=== PATIENT | male | born 1980 | race Two or more races ===

== ENCOUNTER 2022-05-17 17:50 | Emergency (ER) | payer OTHER, SELFPAY ==
--- NOTE | ~2022-05-17 | CT_ITS ---
EXAMINATION: CT SOFT TISSUE NECK WITH CONTRAST CLINICAL INFORMATION: Left greater than right tonsillar swelling. Pain. Abscess. COMPARISON: None available. TECHNIQUE: Multidetector helical imaging was performed in the axial plane following the administration of 60 mL of Omnipaque 350 intravenous contrast. Multiple axial reformats and coronal/sagittal reconstructions were created the technologist workstation for review. This CT examination was performed using dose optimization techniques as appropriate, variously including the following: *Automated exposure control. *Adjustment of mA and/or kV according to patient size (this includes techniques or standardized protocols for targeted exams where dose is matched to indication/reason for exam; i.e. extremities or head). *Use of iterative reconstruction technique. DLP: 1047 mGy-cm FINDINGS: Prominent heterogeneous enlargement of the palatine tonsils abutting in the midline. No demonstrated discrete drainable tonsillar or peritonsillar fluid collection. There is moderate fat stranding within the left greater than right parapharyngeal adipose tissue and to a lesser extent submandibular spaces. No significant cutaneous thickening or subcutaneous inflammation. No discrete fluid collection within the deep tissues of the neck. The premaxillary, retromaxillary, pterygopalatine fossa, orbital apical, parapharyngeal, and prelaryngeal adipose tissue is maintained. Normal appearance of the parotid, submandibular, and thyroid glands. Prominent bilateral level IIa lymph nodes with maintained normal fatty romy, measuring up to 2.5 cm on the right and 2.2 cm on the left. Bilateral level III lymph nodes measure up to 1.4 cm. Otherwise, scattered subcentimeter lymph nodes bilaterally, none of which are pathologically enlarged or abnormally enhancing. No demonstrated focal lesion or abnormal enhancement within the intrinsic tissues of the tongue or floor of mouth. Normal mucosal contours of the remainder of the pharynx and larynx without abnormal enhancement. Normal appearance of the hyoid bone, thyroid cartilage, or cartilaginous trachea. The airways remains widely patent. No radiopaque foreign bodies. The atlantooccipital and atlantoaxial articulations remain well aligned. Straightening of the normal cervical lordosis. There is anatomic alignment of the vertebral bodies and posterior elements. No evidence of acute fracture or subluxation of the cervical spine. The vertebral body heights are maintained. Moderate degenerative disc disease at C4-C5 and C5-C6. The intervertebral disc spaces are maintained. No evidence of epidural collection. There is no prevertebral soft tissue swelling. Normal opacification of the cervical arterial and venous structures. The visualized portion of the skull base is without significant abnormalities. Moderate mucosal thickening of the paranasal sinuses. Small bilateral mastoid effusions. Odontogenic enamel erosion of the maxillary left 3rd molar. No demonstrated significant periapical odontogenic disease. CT Upper Chest: The visualized lung apices and upper mediastinum are within normal limits. CT/CT soft tissue neck w IV con IMPRESSION: 1. Prominent heterogeneous enlargement of the palatine tonsils abutting in the midline. No demonstrated discrete drainable fluid collection. 2. Prominent bilateral upper cervical chain lymphadenopathy, likely reactive in nature. 3. Moderate sinonasal mucosal disease. Small bilateral mastoid effusions.
--- NOTE | 2022-05-17 18:05 | ED.URI ---
HPI - URI/Sore Throat General Chief Complaint: Upper Respiratory Symptoms <Mckayla Ambrocio CNP - Last Filed: 05/17/22 18:45> Stated Complaint: Sore throat, chills <Mckayla Ambrocio CNP - Last Filed: 05/17/22 18:45> Time Seen by Provider: 05/17/22 20:00 <Mckayla Ambrocio CNP - Last Filed: 05/17/22 18:45> Source: patient <DEVIN Sanchez - Last Filed: 05/17/22 23:07> Mode of arrival: ambulatory <DEVIN Sanchez - Last Filed: 05/17/22 23:07> Limitations: no limitations <DEVIN Sanchez - Last Filed: 05/17/22 23:07> History of Present Illness HPI Narrative: 42-year-old male with a history of sleep apnea and diabetes presents with 3 days of sore throat and upper respiratory symptoms. Patient states he is having some difficulty breathing, subjection fever, chills, sinus pain, headache these past few days. Patient tells me he has difficulty eating as well he feels pain with swallowing. Patient is able to speak to me in full sentences and he is controlling secretions well.. Patient denies cough, nausea, vomiting, chest pain, changes in bowel habits, difficulties opening mouth, trouble controlling secretions, recent dental work. <DEVIN Sanchez - Last Filed: 05/17/22 23:07> Related Data Home Medications: Previous Rx's Medication Instructions Recorded clindamycin HCl 300 mg capsule 300 mg PO TID 10 days #30 caps 05/17/22 prednisone 20 mg tablet 60 mg PO DAILY 5 days #15 tabs 05/17/22 <Mckayla Ambrocio CNP - Last Filed: 05/17/22 18:45> Allergies/Adverse Reactions: Allergies Allergy/AdvReac Type Severity Reaction Status Date / Time acetaminophen [From Tylenol] Allergy Rash Verified 05/17/22 18:05 Peanut Butter Allergy Itching Verified 05/17/22 18:05 <Mckayla Ambrocio CNP - Last Filed: 05/17/22 18:45> Review of Systems Review of Systems: Constitutional : No Weight loss, + Fever, + Chills, + Fatigue, + Malaise ENT/Mouth : + sore throat, + Rhinorrhea Eyes: No Eye Pain, No Swelling, No Redness Cardiovascular : No Chest Pain, + SOB, No Dyspnea on Exertion, No Orthopnea, No Edema, No Palpitations Respiratory : No Cough, No Sputum, No Wheezing Gastrointestinal : No Nausea, No Vomiting, No Diarrhea, No Constipation, No abdominal Pain, No Hematochezia, No Melena Genitourinary : No Dysuria, No Urinary Frequency, No Hematuria, Musculoskeletal : No joint pain, No Myalgias, No Joint Swelling Skin : No Skin Lesions, No rash Neuro : No Weakness, No Numbness, No Dizziness, No Headache Psych : No Anxiety/Panic, No Depression All other systems reviewed and are negative <DEVIN Sanchez - Last Filed: 05/17/22 23:07> Yes all other systems are reviewed and are negative <DEVIN Sanchez - Last Filed: 05/17/22 23:07> [facility] Past Medical History Attestation statement: The following information was validated with the patient. <DEVIN Sanchez - Last Filed: 05/17/22 23:07> Source: old records reviewed and nursing notes reviewed <DEVIN Sanchez - Last Filed: 05/17/22 23:07> Social History Social History: Social History Advance Directives: No Advance Directives Information Provided: Yes <Mckayla Ambrocio CNP - Last Filed: 05/17/22 18:45> Physical Exam Vital Signs: Vital Signs: Last Vital Signs Temp 100 F 05/17/22 20:20 Pulse 89 05/17/22 20:20 Resp 13 05/17/22 20:20 BP 149/95 H 05/17/22 20:20 Pulse Ox 96 05/17/22 20:20 O2 Del Method 05/17/22 20:20 BMI result Body Mass Index 37.6 <Mckayla Ambrocio CNP - Last Filed: 05/17/22 18:45> Vital Signs: Last Vital Signs Temp 100 F 05/17/22 20:20 Pulse 89 05/17/22 20:20 Resp 13 05/17/22 20:20 BP 149/95 H 05/17/22 20:20 Pulse Ox 96 05/17/22 20:20 O2 Del Method 05/17/22 20:20 BMI result Body Mass Index 37.6 vss <DEVIN Sanchez - Last Filed: 05/17/22 23:07> Appearance: Alert.? Oriented X3.? No acute distress.? Head: Normocephalic, atraumatic, no step-offs or deformities Eyes: Pupils equal, round and reactive to light.? ENT: + there appears to be some edema to bilateral tonsillar pillars & tonsils with overlying exudates bilaterally, uvula midline, no evidence of abscess. Patient is speaking in full sentences in controlling secretions well. Neck: Normal inspection.? Neck supple.? CVS: Normal heart rate and rhythm.? Pulses normal.? Respiratory: No respiratory distress.? Breath sounds normal.? Abdomen: Soft and nontender.? Skin: Skin warm and dry.? Normal skin color.? Normal skin turgor.? Extremities: No lower extremity edema.? No calf ttp. 5/5 strength to bilateral upper and lower extremities Neuro: Oriented X 3.? No motor deficit.? No sensory deficit. CN 2-12 intact <DEVIN Sanchez - Last Filed: 05/17/22 23:07> Course Course Course Narrative: This is an RME: Additional HPI, ROS, PE not included below will be deferred to primary provider. Patient is a 42 year old male who presents to the ED for evaluation of sore throat, chills x 3 days, states voice muffled, reports hx of similar in the past that responded to steroids Bilateral tonsillar hypertrophy, left greater than right, positive exudates, muffled voice Plan: labs, CT soft tissue neck, strep testing, viral testing, Dexamethasone 10mg PO <Mckayla Ambrocio CNP - Last Filed: 05/17/22 18:45> Reevaluation(s) Reevaluation #1: Patient's CBC with leukocytosis 14.6 likely secondary to strep throat. Chemistry with no acute electrolyte abnormalities requiring intervention. Lactic acid negative. Patient's strep test is positive. CT of soft tissue neck was obtained to rule out abscess, CT scan shows prominent heterogeneous enlargement of the palatine tonsils abutting in the midline , no drainable fluid collection. <DEVIN Sanchez - Last Filed: 05/17/22 23:07> Time: 22:50 <DEVIN Sanchez - Last Filed: 05/17/22 23:07> Reevaluation #2: Patient reports symptomatic improvement states he no longer feels short of breath, he is swallowing much better, controlling secretions well speaking in full sentences, saturating 96-97% on room air comfortable appearing. I did discuss his CT scan results with my attending, who agrees that patient can be discharged home with steroids, clindamycin p.o.. Will educate him on diarrhea warning with clindamycin, will send him home with prednisone. Will give him strict return precautions and advised for and return with any new or worsening symptoms. Will give him follow-up with ears Nose and Throat. Educated patient on diagnosis and treatment plan, answered all question, patient verbalizes understanding. At this time patient will be discharged home, advised to return with new or worsening symptoms. Educated on worrisome signs and symptoms and when to return. At this time I feel comfortable discharge home. <DEVIN Sanchez - Last Filed: 05/17/22 23:07> Time: 23:07 <DEVIN Sanchez - Last Filed: 05/17/22 23:07> Medications Administered Discontinued Medications Generic Name Dose Route Start Last Admin Trade Name Freq PRN Reason Stop Dose Admin Dexamethasone Sodium Phosphate 10 mg 05/17/22 18:44 05/17/22 19:52 Dexamethasone Sod Phosphate 10 Mg/Ml Vial PO 05/17/22 18:45 10 mg ONCE ONE Administration Clindamycin Phosphate 600 mg in 50 mls @ 100 mls/hr 05/17/22 20:23 05/17/22 22:49 Cleocin IV 05/17/22 20:52 Infused ONCE ONE Infusion Iohexol 100 ml 05/17/22 21:16 05/17/22 21:16 Iohexol 350 Mg/Ml 100 Ml Infus..Btl IV 05/17/22 21:17 60 ml ONCE ONE Administration <Mckayla Ambrocio CNP - Last Filed: 05/17/22 18:45> Medications Administered Discontinued Medications Generic Name Dose Route Start Last Admin Trade Name Paulino PRN Reason Stop Dose Admin Dexamethasone Sodium Phosphate 10 mg 05/17/22 18:44 05/17/22 19:52 Dexamethasone Sod Phosphate 10 Mg/Ml Vial PO 05/17/22 18:45 10 mg ONCE ONE Administration Clindamycin Phosphate 600 mg in 50 mls @ 100 mls/hr 05/17/22 20:23 05/17/22 22:49 Cleocin IV 05/17/22 20:52 Infused ONCE ONE Infusion Iohexol 100 ml 05/17/22 21:16 05/17/22 21:16 Iohexol 350 Mg/Ml 100 Ml Infus..Btl IV 05/17/22 21:17 60 ml ONCE ONE Administration <DEVIN Sanchez - Last Filed: 05/17/22 23:07> Medical Decision Making Medical Decision Making [facility] Narrative: 42-year-old male presents with 2 days of sore throat and upper respiratory symptoms Physical exam significant for there appears to be some edema to bilateral tonsillar pillars & tonsils with overlying exudates bilaterally, uvula midline, no evidence of abscess. Patient is speaking in full sentences in controlling secretions well. No trismus Likely strep throat versus abscess. Less likely epiglottitis. I also suspect superimposed viral illness <DEVIN Sanchez - Last Filed: 05/17/22 23:07> Differential Diagnosis Differential Diagnoses: The differential diagnosis associated with the presentation includes <DEVIN Sanchez - Last Filed: 05/17/22 23:07> Likely strep throat versus abscess. Less likely epiglottitis. I also suspect superimposed viral illness <DEVIN Sanchez Last Filed: 05/17/22 23:07> Admission/Observation Consideration of admission/observation: Escalation of care including admission/observation considered <DEVIN Sanchez Last Filed: 05/17/22 23:07> Will not likely be admitted <DEVIN Sanchez Last Filed: 05/17/22 23:07> Lab Data [facility] Lab Attestation statement: I reviewed the patient's lab results. <DEVIN Sanchez Last Filed: 05/17/22 23:07> Result Diagrams: 05/17/22 18:25 05/17/22 18:25 <Mckayla Ambrocio, PRISON[employer] CLASSIFICATION INTERVIEWER - Last Filed: 05/17/22 18:45> Labs: Lab Results 05/17/22 05/17/22 05/17/22 Range/Units 18:25 18:25 18:25 WBC 14.6 H (4.8-10.8) X10*3/uL RBC 4.97 (4.60-5.80) X10*6/uL Hgb 15.2 (14.0-18.0) g/dl Hct 45.1 (42.0-52.0) % MCV 90.7 (80.0-98.0) fL MCH 30.6 (27.0-33.0) pg MCHC 33.7 (31.0-36.0) g/dl RDW 12.3 (11.0-16.0) % Plt Count 230 (160-400) X10*3/uL MPV 11.4 (9.4-12.4) fL Immature Gran % (Auto) 0.4 (0.0-0.4) % Neut % (Auto) 71.3 (45-73) % Lymph % (Auto) 19.1 L (20-40) % [place] % (Auto) 7.5 (2-11) % Eos % (Auto) 1.4 (0-4) % Baso % (Auto) 0.3 (0-2) % Lymph # (Auto) 2.8 (1.2-4.9) X10*3/uL [place] # (Auto) 1.1 (0.1-1.2) X10*3/uL Eos # (Auto) 0.2 (0.0-0.4) X10*3/uL Baso # (Auto) 0.0 (0.0-0.2) X10*3/uL Abs Immat Gran (auto) 0.06 H (0.00-0.03) X10*3/uL Absolute Neuts (auto) 10.4 H (2.0-8.3) x10*3/uL Absolute Nucleated RBC 0.000 (0.0-0.012) X10*3/uL Nucleated RBC % (auto) 0.0 (0.0-0.2) /100WBC Sodium 137 (135-145) mmol/L Potassium 4.2 (3.3-5.1) mmol/L Chloride 102 (96-108) mmol/L Carbon Dioxide 25 (22-29) mmol/L Anion Gap 14 (12-20) BUN 14 (9-16) mg/dL Creatinine 0.75 (0.5-1.4) mg/dL Estim Creat Clear Calc 174.3 Estimated GFR > 60 Random Glucose 205 H (60-115) mg/dL Lactic Acid (0.5-2.0) mmol/L Calcium 9.1 (8.4-10.2) mg/dL Total Bilirubin 0.8 (0.0-1.0) mg/dL AST 13 (5-37) U/L ALT 18 (0-40) U/L Alkaline Phosphatase 89 (39-117) U/L Total Protein 7.1 (6.5-8.0) g/dL Albumin 4.2 (3.5-5.0) g/dL COVID-19 (DORIAN) (Negative) COVID-19 Clin Com Influenza Type A (LAURIE) Negative (Negative) Influenza Type B (LAURIE) Negative (Negative) Influenza A & B Note See Note S. pyogenes GrpA LAURIE (Negative) 05/17/22 05/17/22 05/17/22 Range/Units 18:25 18:25 20:50 WBC (4.8-10.8) X10*3/uL RBC (4.60-5.80) X10*6/uL Hgb (14.0-18.0) g/dl Hct (42.0-52.0) % MCV (80.0-98.0) fL MCH (27.0-33.0) pg MCHC (31.0-36.0) g/dl RDW (11.0-16.0) % Plt Count (160-400) X10*3/uL MPV (9.4-12.4) fL Immature Gran % (Auto) (0.0-0.4) % Neut % (Auto) (45-73) % Lymph % (Auto) (20-40) % [place] % (Auto) (2-11) % Eos % (Auto) (0-4) % Baso % (Auto) (0-2) % Lymph # (Auto) (1.2-4.9) X10*3/uL [place] # (Auto) (0.1-1.2) X10*3/uL Eos # (Auto) (0.0-0.4) X10*3/uL Baso # (Auto) (0.0-0.2) X10*3/uL Abs Immat Gran (auto) (0.00-0.03) X10*3/uL Absolute Neuts (auto) (2.0-8.3) x10*3/uL Absolute Nucleated RBC (0.0-0.012) X10*3/uL Nucleated RBC % (auto) (0.0-0.2) /100WBC Sodium (135-145) mmol/L Potassium (3.3-5.1) mmol/L Chloride (96-108) mmol/L Carbon Dioxide (22-29) mmol/L Anion Gap (12-20) BUN (9-16) mg/dL Creatinine (0.5-1.4) mg/dL Estim Creat Clear Calc Estimated GFR Random Glucose (60-115) mg/dL Lactic Acid 1.0 (0.5-2.0) mmol/L Calcium (8.4-10.2) mg/dL Total Bilirubin (0.0-1.0) mg/dL AST (5-37) U/L ALT (0-40) U/L Alkaline Phosphatase (39-117) U/L Total Protein (6.5-8.0) g/dL Albumin (3.5-5.0) g/dL COVID-19 (DORIAN) Negative (Negative) COVID-19 Clin Com See Note Influenza Type A (LAURIE) (Negative) Influenza Type B (LAURIE) (Negative) Influenza A & B Note S. pyogenes GrpA LAURIE Positive A (Negative) <Mckayla Ambrocio, PATRIC - Last Filed: 05/17/22 18:45> Lab Results 05/17/22 05/17/22 05/17/22 Range/Units 18:25 18:25 18:25 WBC 14.6 H (4.8-10.8) X10*3/uL RBC 4.97 (4.60-5.80) X10*6/uL Hgb 15.2 (14.0-18.0) g/dl Hct 45.1 (42.0-52.0) % MCV 90.7 (80.0-98.0) fL MCH 30.6 (27.0-33.0) pg MCHC 33.7 (31.0-36.0) g/dl RDW 12.3 (11.0-16.0) % Plt Count 230 (160-400) X10*3/uL MPV 11.4 (9.4-12.4) fL Immature Gran % (Auto) 0.4 (0.0-0.4) % Neut % (Auto) 71.3 (45-73) % Lymph % (Auto) 19.1 L (20-40) % [place] % (Auto) 7.5 (2-11) % Eos % (Auto) 1.4 (0-4) % Baso % (Auto) 0.3 (0-2) % Lymph # (Auto) 2.8 (1.2-4.9) X10*3/uL [place] # (Auto) 1.1 (0.1-1.2) X10*3/uL Eos # (Auto) 0.2 (0.0-0.4) X10*3/uL Baso # (Auto) 0.0 (0.0-0.2) X10*3/uL Abs Immat Gran (auto) 0.06 H (0.00-0.03) X10*3/uL Absolute Neuts (auto) 10.4 H (2.0-8.3) x10*3/uL Absolute Nucleated RBC 0.000 (0.0-0.012) X10*3/uL Nucleated RBC % (auto) 0.0 (0.0-0.2) /100WBC Sodium 137 (135-145) mmol/L Potassium 4.2 (3.3-5.1) mmol/L Chloride 102 (96-108) mmol/L Carbon Dioxide 25 (22-29) mmol/L Anion Gap 14 (12-20) BUN 14 (9-16) mg/dL Creatinine 0.75 (0.5-1.4) mg/dL Estim Creat Clear Calc 174.3 Estimated GFR > 60 Random Glucose 205 H (60-115) mg/dL Lactic Acid (0.5-2.0) mmol/L Calcium 9.1 (8.4-10.2) mg/dL Total Bilirubin 0.8 (0.0-1.0) mg/dL AST 13 (5-37) U/L ALT 18 (0-40) U/L Alkaline Phosphatase 89 (39-117) U/L Total Protein 7.1 (6.5-8.0) g/dL Albumin 4.2 (3.5-5.0) g/dL COVID-19 (DORIAN) (Negative) COVID-19 Clin Com Influenza Type A (LAURIE) Negative (Negative) Influenza Type B (LAURIE) Negative (Negative) Influenza A & B Note See Note S. pyogenes GrpA LAURIE (Negative) 05/17/22 05/17/22 05/17/22 Range/Units 18:25 18:25 20:50 WBC (4.8-10.8) X10*3/uL RBC (4.60-5.80) X10*6/uL Hgb (14.0-18.0) g/dl Hct (42.0-52.0) % MCV (80.0-98.0) fL MCH (27.0-33.0) pg MCHC (31.0-36.0) g/dl RDW (11.0-16.0) % Plt Count (160-400) X10*3/uL MPV (9.4-12.4) fL Immature Gran % (Auto) (0.0-0.4) % Neut % (Auto) (45-73) % Lymph % (Auto) (20-40) % [place] % (Auto) (2-11) % Eos % (Auto) (0-4) % Baso % (Auto) (0-2) % Lymph # (Auto) (1.2-4.9) X10*3/uL [place] # (Auto) (0.1-1.2) X10*3/uL Eos # (Auto) (0.0-0.4) X10*3/uL Baso # (Auto) (0.0-0.2) X10*3/uL Abs Immat Gran (auto) (0.00-0.03) X10*3/uL Absolute Neuts (auto) (2.0-8.3) x10*3/uL Absolute Nucleated RBC (0.0-0.012) X10*3/uL Nucleated RBC % (auto) (0.0-0.2) /100WBC Sodium (135-145) mmol/L Potassium (3.3-5.1) mmol/L Chloride (96-108) mmol/L Carbon Dioxide (22-29) mmol/L Anion Gap (12-20) BUN (9-16) mg/dL Creatinine (0.5-1.4) mg/dL Estim Creat Clear Calc Estimated GFR Random Glucose (60-115) mg/dL Lactic Acid 1.0 (0.5-2.0) mmol/L Calcium (8.4-10.2) mg/dL Total Bilirubin (0.0-1.0) mg/dL AST (5-37) U/L ALT (0-40) U/L Alkaline Phosphatase (39-117) U/L Total Protein (6.5-8.0) g/dL Albumin (3.5-5.0) g/dL COVID-19 (DORIAN) Negative (Negative) COVID-19 Clin Com See Note Influenza Type A (LAURIE) (Negative) Influenza Type B (LAURIE) (Negative) Influenza A & B Note S. pyogenes GrpA LAURIE Positive A (Negative) <DEVIN Sanchez - Last Filed: 05/17/22 23:07> Independent Interpretation I performed an independent interpretation of an: CT Scan <DEVIN Sanchez - Last Filed: 05/17/22 23:07> Radiology Impression Discussion of test interpretation with radiology: I have reviewed the radiologist's reading. <DEVIN Sanchez - Last Filed: 05/17/22 23:07> External Record Review External record reviewed: Inpatient record, Office record, Outpatient record, Prior outpatient labs, Prior outpatient radiology, Primary care record and Outside ED record <DEVIN Sanchez - Last Filed: 05/17/22 23:07> Core Measures AMI core measures followed: Yes <DEVIN Sanchez - Last Filed: 05/17/22 23:07> Measure exclusions: not indicated <DEVIN Sanchez - Last Filed: 05/17/22 23:07> Critical Care Time Critical Care Time Critical Care Time: No <DEVIN Sanchez - Last Filed: 05/17/22 23:07> Discharge Plan Discharge Clinical Impression: Pharyngitis, Viral infection <Mckayla Ambrocio CNP - Last Filed: 05/17/22 18:45> Patient Disposition: Home, Self-Care <Mckayla Ambrocio CNP - Last Filed: 05/17/22 18:45> Instructions: Pharyngitis (ED) <Mckayla Ambrocio CNP - Last Filed: 05/17/22 18:45> Additional Instructions: Take your medications as prescribed. If you were prescribed antibiotics today, it is important that you take your medication to their entirety, do not skip any doses, do not finish them early. Follow-up with your primary care provider this week. Return to the emergency department with new or worsening symptoms. Such as fevers, chills, chest pain, shortness of breath, nausea, vomiting, dizziness, headache, vision changes, lethargy In case of emergency call 911 CT/CT soft tissue neck w IV con IMPRESSION: 1.? Prominent heterogeneous enlargement of the palatine tonsils abutting in the midline. No demonstrated discrete drainable fluid collection. 2.? Prominent bilateral upper cervical chain lymphadenopathy, likely reactive in nature. 3.? Moderate sinonasal mucosal disease. Small bilateral mastoid effusions. ? <Mckayla Ambrocio CNP - Last Filed: 05/17/22 18:45> Prescriptions: New clindamycin HCl 300 mg capsule 300 mg PO TID 10 Days Qty: 30 0RF prednisone 20 mg tablet 60 mg PO DAILY 5 Days Qty: 15 0RF <Mckayla Ambrocio CNP - Last Filed: 05/17/22 18:45> Referrals: Manuel Cohn [Physician] - 2 days Physician,Julian J [Primary Care Provider] - 2 days <Mckayla Ambrocio CNP - Last Filed: 05/17/22 18:45> Stand Alone Forms: Work/School Release <Mckayla Ambrocio CNP - Last Filed: 05/17/22 18:45>
[2022-05-17 18:06] VITALS: BP 143/78; PULSE 95; RESP 18; TEMP 37.1; BMI 37.6
[2022-05-17 18:33] LABS: MANUAL DIFF FLAG NO
[2022-05-17 18:39] LABS: Basophils Percent Auto 0.3 % (0-2); Eosinophils Absolute Auto 0.2 X10*3/uL (0.0-0.4); Eosinophils Percent Auto 1.4 % (0-4); Hematocrit 45.1 % (42.0-52.0); Hemoglobin 15.2 g/dl (14.0-18.0); Imm Gran Abs Auto 0.06 X10*3/uL (0.00-0.03); Imm Gran Pct Auto 0.4 % (0.0-0.4); Lymphocytes Absolute Auto 2.8 X10*3/uL (1.2-4.9); Lymphocytes Percent Auto 19.1 % (20-40); Mean Corpuscular HGB Conc 33.7 g/dl (31.0-36.0); Mean Corpuscular Hemoglobin 30.6 pg (27.0-33.0); Mean Corpuscular Volume 90.7 fL (80.0-98.0); Mean Platelet Volume 11.4 fL (9.4-12.4); Monocytes Absolute Auto 1.1 X10*3/uL (0.1-1.2); Monocytes Percent Auto 7.5 % (2-11); Neutrophils Absolute Auto 10.4 x10*3/uL (2.0-8.3); Neutrophils Percent Auto 71.3 % (45-73); Platelet Count 230 X10*3/uL (160-400); Red Blood Count 4.97 X10*6/uL (4.60-5.80); Red Cell Distribution Width 12.3 % (11.0-16.0); White Blood Count 14.6 X10*3/uL (4.8-10.8)
[2022-05-17 18:50] LABS: Alanine Aminotransferase 18 U/L (0-40); Albumin Level 4.2 g/dL (3.5-5.0); Alkaline Phosphatase 89 U/L (39-117); Anion Gap 14 (12-20); Aspartate Amino Transferase 13 U/L (5-37); Bilirubin Total 0.8 mg/dL (0.0-1.0); Blood Urea Nitrogen 14 mg/dL (9-16); Calcium 9.1 mg/dL (8.4-10.2); Carbon Dioxide 25 mmol/L (22-29); Chloride 102 mmol/L (96-108); Creatinine Clr Calc Pharmacy 174.3; Estimated Glomerular Filt Rate > 60; Glucose Random 205 mg/dL (60-115); Potassium 4.2 mmol/L (3.3-5.1); Sodium 137 mmol/L (135-145); Total Protein 7.1 g/dL (6.5-8.0)
[2022-05-17 18:53] LABS: IDNOW Serial# 6674DD1D; Strep A Nucleic Acid Positive (Negative)
[2022-05-17 19:05] LABS: COVID-19 Test Negative (Negative); IDNOW Serial# 16C4AD1C; IDNOW Serial# BCCEAD1C; Influenza A Negative (Negative); Influenza B2 Negative (Negative)
[2022-05-17] MEDS: dexAMETHasone sod phosphate 10 MG/ML VIAL PO (19:52)
[2022-05-17 20:20] VITALS: BP 149/95; PULSE 89; RESP 13; TEMP 37.7; O2SAT 96
[2022-05-17] MEDS: iohexoL 350 MG/ML 100 ML INFUS..BTL IV (21:16)
[2022-05-17] MEDS: Clindamycin Phosphate/D5W 600 MG/50 ML PIGGYBACK 100 MG IV (21:26)
[2022-05-17 23:42] VITALS: BP 134/80; PULSE 82; RESP 16; TEMP 36.8; O2SAT 95
--- NOTE | 2022-05-17 23:43 | MHC.EDTECH ---
patient vitals sign taken ,patient waiting for discharge paper work .
== END 2022-05-18 00:36 | disposition home or self-care (01) ==
PROVIDERS: Nurse Practitioner Family; Physician Assistant; Emergency Provider Internal Medicine
DX: B34.9 Viral infection, unspecified (principal); J02.0 Streptococcal pharyngitis; Z20.822 Contact with and (suspected) exposure to COVID-19
CPT/HCPCS: 36415; 70491; 80053; 83605; 85025; 87040; 87502; 87635; 87651; 96365; 99284; J1100; Q9967

== ENCOUNTER 2022-05-31 09:38 | Emergency (ER) | payer OTHER, SELFPAY ==
[2022-05-31 10:09] VITALS: BP 141/94; PULSE 77; RESP 18; TEMP 36.5; O2SAT 97; BMI 34.8
[2022-05-31 10:22] LABS: MANUAL DIFF FLAG NO
[2022-05-31 10:24] LABS: Basophils Percent Auto 0.3 % (0-2); Eosinophils Absolute Auto 0.2 X10*3/uL (0.0-0.4); Hematocrit 44.8 % (42.0-52.0); Hemoglobin 15.1 g/dl (14.0-18.0); Imm Gran Abs Auto 0.04 X10*3/uL (0.00-0.03); Imm Gran Pct Auto 0.4 % (0.0-0.4); Lymphocytes Absolute Auto 3.1 X10*3/uL (1.2-4.9); Lymphocytes Percent Auto 33.3 % (20-40); Mean Corpuscular HGB Conc 33.7 g/dl (31.0-36.0); Mean Corpuscular Hemoglobin 30.3 pg (27.0-33.0); Mean Platelet Volume 11.4 fL (9.4-12.4); Monocytes Absolute Auto 0.6 X10*3/uL (0.1-1.2); Monocytes Percent Auto 6.7 % (2-11); Neutrophils Absolute Auto 5.3 x10*3/uL (2.0-8.3); Neutrophils Percent Auto 57.3 % (45-73); Platelet Count 227 X10*3/uL (160-400); Red Blood Count 4.98 X10*6/uL (4.60-5.80); Red Cell Distribution Width 12.1 % (11.0-16.0); White Blood Count 9.3 X10*3/uL (4.8-10.8)
[2022-05-31 10:47] LABS: Anion Gap 10 (12-20); Blood Urea Nitrogen 11 mg/dL (9-16); Calcium 8.8 mg/dL (8.4-10.2); Carbon Dioxide 28 mmol/L (22-29); Chloride 101 mmol/L (96-108); Creatinine Clr Calc Pharmacy 177.1; Estimated Glomerular Filt Rate > 60; Glucose Random 332 mg/dL (60-115); Potassium 4.3 mmol/L (3.3-5.1); Sodium 135 mmol/L (135-145)
--- NOTE | 2022-05-31 12:04 | ED.GENADULT ---
HPI - General Adult General Chief complaint: General Medical Stated complaint: Large hemorrhoids Time Seen by Provider: 05/31/22 11:35 History of Present Illness HPI narrative: Patient is 42-year-old male presents today with having pain in the rectal area for the last 2 days. Pain on defecation. No fever no chills no chest pain or shortness breath no nausea no vomiting. No systemic complaints. Patient has a history of diabetes. Related Data Previous Rx's Medication Instructions Recorded clindamycin HCl 300 mg capsule 300 mg PO TID 10 days #30 caps 05/17/22 prednisone 20 mg tablet 60 mg PO DAILY 5 days #15 tabs 05/17/22 docusate sodium 100 mg capsule 100 mg PO BID #30 caps 05/31/22 (Colace) oxycodone 5 mg tablet 5 mg PO Q8H PRN pain #7 tabs 05/31/22 Allergies Allergy/AdvReac Type Severity Reaction Status Date / Time acetaminophen [From Tylenol] Allergy Rash Verified 05/17/22 18:05 Peanut Butter Allergy Itching Verified 05/17/22 18:05 Review of Systems Review of Systems: Positive rectal pain Yes all other systems are reviewed and are negative [facility] Past Medical History Attestation statement: The following information was validated with the patient. Social History Social History Smoked in Last 30 Days: Yes Advance Directives: No Advance Directives Information Provided: Yes Physical Exam ED Vital Signs: Vital Signs - 24 hr 05/31/22 10:09 05/31/22 12:39 Temperature 97.7 F 97.9 F Pulse Rate 77 62 Respiratory Rate 18 14 Blood Pressure 141/94 H 128/90 H Pulse Oximetry 97 98 Oxygen Delivery Method Room Air BMI result Body Mass Index 34.8 Appearance: Alert. Oriented X3. No acute distress. Eyes: Pupils equal, round and reactive to light. ENT: Pharynx normal. Neck: Normal inspection. Neck supple. No lymph nodes noted. No crepitus CVS: Normal heart rate and rhythm. Pulses normal. Normal S1 and S2 Respiratory: No respiratory distress. Breath sounds normal. No Wheezing. No rales Abdomen: Soft and nontender. No rigidity. No distention. good BS x4 Skin: Skin warm and dry. Normal skin color. Normal skin turgor. Rectal exam there is a gross thrombosed hemorrhoid noted that is approximately 3 cm x 2 cm in size. Extremities: No lower extremity edema. Neurovascular intact to all extremities. No Lacerations. No Rash Neuro: Oriented X 3. No motor deficit. No sensory deficit. Moving all extermities. No slurred speech Medical Decision Making Medical Decision Making [facility] Narrative: Positive thrombosed hemorrhoid likely the cause of patient's extreme pain on defecation. Patient's hemoglobin is normal. No acute distress. Patient's case discussed with general surgery Dr. Jean. Coming down to evaluate patient. In stable condition. Patient is seen by surgery. The hemorrhoid was cut. Will give Percocet Colace. Follow-up on an outpatient basis with surgery. Sitz bath. In stable condition with discharge home Differential Diagnosis Differential Diagnoses: The differential diagnosis associated with the presentation includes Thrombosed hemorrhoid Lab Data [facility] Lab Attestation statement: I reviewed the patient's lab results. 05/31/22 10:18 05/31/22 10:18 Labs: Lab Results 05/31/22 05/31/22 Range/Units 10:18 10:18 WBC 9.3 (4.8-10.8) X10*3/uL RBC 4.98 (4.60-5.80) X10*6/uL Hgb 15.1 (14.0-18.0) g/dl Hct 44.8 (42.0-52.0) % MCV 90.0 (80.0-98.0) fL MCH 30.3 (27.0-33.0) pg MCHC 33.7 (31.0-36.0) g/dl RDW 12.1 (11.0-16.0) % Plt Count 227 (160-400) X10*3/uL MPV 11.4 (9.4-12.4) fL Immature Gran % (Auto) 0.4 (0.0-0.4) % Neut % (Auto) 57.3 (45-73) % Lymph % (Auto) 33.3 (20-40) % Daggett % (Auto) 6.7 (2-11) % Eos % (Auto) 2.0 (0-4) % Baso % (Auto) 0.3 (0-2) % Lymph # (Auto) 3.1 (1.2-4.9) X10*3/uL Daggett # (Auto) 0.6 (0.1-1.2) X10*3/uL Eos # (Auto) 0.2 (0.0-0.4) X10*3/uL Baso # (Auto) 0.0 (0.0-0.2) X10*3/uL Abs Immat Gran (auto) 0.04 H (0.00-0.03) X10*3/uL Absolute Neuts (auto) 5.3 (2.0-8.3) x10*3/uL Absolute Nucleated RBC 0.000 (0.0-0.012) X10*3/uL Nucleated RBC % (auto) 0.0 (0.0-0.2) /100WBC Sodium 135 (135-145) mmol/L Potassium 4.3 (3.3-5.1) mmol/L Chloride 101 (96-108) mmol/L Carbon Dioxide 28 (22-29) mmol/L Anion Gap 10 L (12-20) BUN 11 (9-16) mg/dL Creatinine 0.71 (0.5-1.4) mg/dL Estim Creat Clear Calc 177.1 Estimated GFR > 60 Random Glucose 332 H (60-115) mg/dL Calcium 8.8 (8.4-10.2) mg/dL Discharge Plan Discharge Clinical Impression: External hemorrhoid, thrombosed Patient Disposition: Home, Self-Care Instructions: Hemorrhoids (ED), Stapled Hemorrhoidopexy (DC) Additional Instructions: Sitz bath, use stool softeners. Close follow-up on an outpatient basis with surgery. Prescriptions: New docusate sodium [Colace] 100 mg capsule 100 mg PO BID Qty: 30 0RF oxycodone 5 mg tablet 5 mg PO Q8H PRN (Reason: pain) Qty: 7 0RF Rx Instructions: Partial Fill upon patient request. No Action clindamycin HCl 300 mg capsule 300 mg PO TID 10 Days Qty: 30 0RF prednisone 20 mg tablet 60 mg PO DAILY 5 Days Qty: 15 0RF Referrals: Lang Jean MD [Physician] - 06/04/22
[2022-05-31 12:39] VITALS: BP 128/90; PULSE 62; RESP 14; TEMP 36.6; O2SAT 98
[2022-05-31 13:15] VITALS: RESP 22
[2022-05-31] MEDS: HYDROmorphone HCl 0.5 MG/0.5 ML SYRINGE IVPUSH (13:15)
--- NOTE | 2022-05-31 13:15 | PM.CNGS ---
History of Present Illness Consult details Consult date: 05/31/22 Narrative: 42M who says he has had pain in the anus for 2-3 days now. He says he feels a large tender lump as well. He says he has a hx of constipation. He denies seeing blood per rectum. He says he is healthy otherwise Review of Systems Constitutional: Constitutional: Denies chills and Denies fever(s) Cardiovascular: Cardiovascular: Denies chest pain, Denies dyspnea and Denies dyspnea on exertion Respiratory: Respiratory: Denies cough, Denies dyspnea and Denies dyspnea on exertion Gastrointestinal: Gastrointestinal: Denies hematochezia and Denies change in bowel habits Genitourinary: Genitourinary: Denies hematuria and Denies difficulty urinating Musculoskeletal: Musculoskeletal: Denies back pain and Denies limited range of motion Neurologic: Denies focal weakness and Denies convulsions Psychiatric: Psychiatric: Denies depression and Denies mood swings [facility] Past Medical History Medical History (Updated 06/04/22 @ 16:19 by Lang Jean MD) Thrombosed external hemorrhoid Surgical History Surgical History History of tonsillectomy Social History Social History Patient Tobacco Use Status: Never used Tobacco Meds Allergies Allergy/AdvReac Type Severity Reaction Status Date / Time acetaminophen [From Tylenol] Allergy Rash Verified 06/04/22 15:57 Peanut Butter Allergy Itching Verified 06/04/22 15:57 Physical Exam Vital Signs: Vital Signs: Last Vital Signs Temp 97.9 F 05/31/22 12:39 Pulse 62 05/31/22 12:39 Resp 14 05/31/22 12:39 BP 128/90 H 05/31/22 12:39 Pulse Ox 98 05/31/22 12:39 O2 Del Method 05/31/22 12:39 BMI result Body Mass Index 34.8 Const: General: comfortable and no acute distress Orientation/consciousness: patient oriented x3 Neck: Neck: Yes no lymphadenopathy Resp: Auscultation: clear to auscultation bilaterally Cardio: Rhythm: regular rhythm GI: Other: rectal exam - large thrombosed external hemorrhoid, right anal verge, about 3 cm in diameter Palpation (GI): Soft to palpation, nontender and no guarding Neuro: General: patient oriented x3 Results Labs 05/31/22 10:18 05/31/22 10:18 Labs: Abnormal lab results 05/31/22 05/31/22 Range/Units 10:18 10:18 Abs Immat Gran (auto) 0.04 H (0.00-0.03) X10*3/uL Anion Gap 10 L (12-20) Random Glucose 332 H (60-115) mg/dL Short CBC 05/31/22 Range/Units 10:18 WBC 9.3 (4.8-10.8) X10*3/uL Hgb 15.1 (14.0-18.0) g/dl Hct 44.8 (42.0-52.0) % Plt Count 227 (160-400) X10*3/uL BMP 05/31/22 10:18 Sodium 135 Potassium 4.3 Chloride 101 Carbon Dioxide 28 BUN 11 Creatinine 0.71 Calcium 8.8 All other labs normal. Assessment and Plan (1) External hemorrhoid, thrombosed: Status: Inactive He has a large thrombosed eternal hemorrhid as described. He does state that he significant pain and tenderness. I explained to him that it may be best to evacuate the clots, and remove at least part of the hemorrhoid. I explained the technique under local anesthesia at bedside. I reviewed the risks including but not limited to bleeding, infections and pain.He had given verbal consent. Incision and evacuation of the clots along with partial removal of the hemorrhoid was done. He tolerated the procedure well. I have isntructed him on hot sitz abths three times a day. He can have Percocet, Ibuprofen and Colace.I will see him in the office next week. He may benefit from forma excision down the line depending on size of the residual hemorrhoid. Time Spent With Patient Time: Total time managing care of this patient today ____ minutes. Procedures Date of Service Date of Service: 05/31/22 Procedure Note Procedure Note: Procedure: I and D, and partial excision of thrombosed external hemorrhoid The pt was palced in right lateral decub position. The left buttock was taped away from the anus to allow good exposure. The area of the thrombosed hemorrhoid was prepped and draped, Lidocaine 1% was used for local anesthesia. I made a generous incision on the skin overlying the thrombosed hemorrhoid using a blade 11, This was deepend until I visualized clots. I used scissors to excise some skin of the hemorrhoid and to remove clots. I also removed large amounts of clots with a hemostat. He tolerated the procedure well. Estimated blood loss was about 20 cc. There was good hemostasis at the end.
== END 2022-05-31 13:49 | disposition home or self-care (01) ==
PROVIDERS: Emergency Provider Emergency Medicine Emergency Medical Services
DX: K64.5 Perianal venous thrombosis (principal); K64.9 Unspecified hemorrhoids; Z79.899 Other long term (current) drug therapy
CPT/HCPCS: 36415; 80048; 85025; 96374; 99284; J1170

== ENCOUNTER 2022-06-01 17:45 | Emergency (ER) | payer OTHER, SELFPAY ==
[2022-06-01 18:27] VITALS: BP 133/96; PULSE 101; RESP 18; TEMP 36.8; O2SAT 98; BMI 37.6
== END 2022-06-01 20:59 | disposition left against medical advice (07) ==
PROVIDERS: Emergency Provider Emergency Medicine; PCP Internal Medicine
DX: G89.18 Other acute postprocedural pain (principal); Z53.21 Procedure and treatment not carried out due to patient leaving prior to being seen by health care provider
CPT/HCPCS: 99281

== ENCOUNTER → 2022-06-04 15:25 | Outpatient (BNVA) | payer OTHER, SELFPAY | PROVIDERS: Visit Provider Surgery | DX: K64.5 Perianal venous thrombosis (principal) | CPT/HCPCS: 99202 ==

== ENCOUNTER 2022-06-12 13:36 | Emergency (ER) | payer OTHER, SELFPAY ==
--- NOTE | ~2022-06-12 | XR_ITS ---
EXAMINATION: XR LUMBOSACRAL SPINE CLINICAL INFORMATION: Low back pain. COMPARISON: None available. TECHNIQUE: Three views of the lumbosacral spine. FINDINGS: There is normal lumbar lordosis and spinal alignment. The vertebral bodies are intact. Mild anterior osteophyte formation is seen at L3-L4 and moderate anterior osteophyte formation is seen off of L5 at L4-L5. The intervertebral disc spaces are unremarkable. There is no acute fracture. The soft tissues are unremarkable. XR/XR lumbar spine 2-3V IMPRESSION: Degenerative osteophyte formation as detailed above without other significant abnormality.
[2022-06-12 14:52] VITALS: BP 145/105; PULSE 97; RESP 18; TEMP 36.6; O2SAT 97; BMI 37.3
[2022-06-12] MEDS: Cyclobenzaprine HCl 10 MG TABLET PO (16:22)
[2022-06-12] MEDS: predniSONE 20 MG TABLET 60 MG PO (16:23)
[2022-06-12] MEDS: NaPROXEN 500 MG TABLET PO (16:23)
--- NOTE | 2022-06-12 17:41 | ED_ITS ---
HPI - Back Pain/Injury General Chief Complaint: Back Pain/Injury Stated Complaint: lower back pain Time Seen by Provider: 06/12/22 15:36 Source: patient Mode of arrival: ambulatory Limitations: no limitations History of Present Illness HPI Narrative: 42-year-old male presenting to the ER with complaints of lower back pain that has been atraumatic over the past 5 days. Reports that he has had back pain in the past for many years although has never had it for this long. He reports that he does not work at this time and he is not doing any heavy lifting. He reports it is at the lower spine. Reports it is worse when he wakes up in the mornings and with movement bending over any type of lifting that is not heavy. He denies any fevers, chills, dizziness, headaches, neck pain/stiffness, trouble swallowing breathing, chest pain or shortness of breath, dyspnea on exertion, orthopnea, palpitations, paresthesias, abdominal pain, flank pain, dysuria, hematuria, abnormal penile discharge, black or bloody stools, urinary bowel incontinence or paresthesias, saddle anesthesia, IV drug use, recent falls or trauma or any other symptoms complaints or concerns at this time. MD elicited complaint: back pain Pertinent past history: prior back pain Onset (ago): day(s) (5) Timing: constant Severity: moderate Similar Symptoms Previously: Yes Quality: burning and aching Location: lumbar spine Radiation: none Exacerbating factors: movement, walking and lifting Relieving factors: none Context: unknown Associated symptoms: denies other symptoms Treatments prior to arrival: other (Reports he has tried multiple [id number] medication no symptomatic relief) Work related injury: No Related Data Previous Rx's Medication Instructions Recorded clindamycin HCl 300 mg capsule 300 mg PO TID 10 days #30 caps 05/17/22 docusate sodium 100 mg capsule 100 mg PO BID #30 caps 05/31/22 (Colace) cyclobenzaprine 10 mg tablet 10 mg PO Q8H #14 tabs 06/12/22 naproxen 500 mg tablet 500 mg PO BID PRN pain #14 tabs 06/12/22 prednisone 20 mg tablet 40 mg PO DAILY inflammation 5 days 06/12/22 #10 tabs Allergies Allergy/AdvReac Type Severity Reaction Status Date / Time acetaminophen [From Tylenol] Allergy Rash Verified 06/12/22 14:51 Peanut Butter Allergy Itching Verified 06/12/22 14:51 Review of Systems Review of Systems: Constitutional : No trauma, No Weight loss, No Fever, No Chills, ENT/Mouth : No Hearing loss, No Ear Pain, No Nasal Congestion, No Sinus Pain, No Hoarseness, No sore throat, No Rhinorrhea, No Swallowing Difficulty Cardiovascular : No Chest Pain, No SOB Respiratory : No Cough, No Dyspnea Gastrointestinal : No Nausea, No Vomiting, No Diarrhea, No abdominal Pain, No Hematochezia, No Melena Genitourinary : No Dysuria, No Urinary Frequency, No Hematuria, No Urinary or Bowel Incontinence/retention Musculoskeletal : + Back pain, No neck pain, No joint stiffness, No joint swelling Skin : No Skin Lesions, No rash or signs of infection Neuro : No Weakness, No radiation, No Numbness, No Paresthesias, No headache, no loss of bowel or bladder incontinence, no saddle anesthesia Denies history of IV drug usage. Yes all other systems are reviewed and are negative PMFSH Past Medical History Attestation statement: The following information was validated with the patient. Source: old records reviewed and nursing notes reviewed Medical History Thrombosed external hemorrhoid Surgical History History of tonsillectomy Social History Social History Patient Tobacco Use Status: Never used Tobacco Advance Directives: No Advance Directives Information Provided: No Physical Exam Vital Signs: Vital Signs: Last Vital Signs Temp 98 F 06/12/22 14:52 Pulse 97 06/12/22 14:52 Resp 18 06/12/22 14:52 BP 145/105 H 06/12/22 14:52 Pulse Ox 97 06/12/22 14:52 O2 Del Method 06/12/22 14:52 BMI result Body Mass Index 37.3 vital signs have been reviewed as normal and appeared to be correct. Blood pressure normal. Heart rate normal. Respiration rate normal. Temperature normal. Oxygen saturation normal. Appearance: Alert. Oriented X3. No acute distress. Head: Normal external exam. Normocephalic. Atraumatic. No Andrea signs noted. No raccoon eyes noted Eyes: PERRLA. EOMI. Conjunctiva and sclera normal. Eyelids normal. ENT: EAC normal. TM's Normal. Pharynx normal. Uvula midline. Moist mucous membranes. No trismus noted. No drooling noted. No muffled voice noted. Neck: Normal inspection. Neck supple. FROM. No adenopathy. Thyroid Normal. No meningeal signs. No neck mass noted. CVS: Normal heart rate and rhythm. Heart sound normal. No murmurs noted. Pulses normal throughout. Respiratory: No respiratory distress. Painless inspiration. Breath sounds normal. No wheezes/rales/rhonchi noted. Chest nontender. No accessory muscle usage noted or decreased air movement noted. Abdomen: Soft and nontender. Bowel sounds normal in all 4 quadrants. No distention noted. No organomegaly noted. No visible injury noted. Back: No CVA tenderness. Full range of motion noted. No obvious deformities, or edema. Mild para-spinal muscular tenderness from lumbar region to coccyx. Full ROM in back and lower extremities. 5/5 strength hip extension/flexion, abduction, adduction. Mild Lumbar pain with hip flexion against resistance. Straight leg raise test negative on right; Straight leg raise test negative on left; Reflexes normal ankle and knee bilaterally; EHL motor strength normal bilaterally. No rashes/lesion/induration/fluctuance or signs infection noted. Skin: Skin warm and dry. Normal skin color. Normal skin turgor. No rashes/lesions/lacerations noted. Extremities: No lower extremity edema. Extremities exhibit normal range of motion. Extremities nontender. Neuro: Oriented X 3. No motor deficit. No sensory deficit. Reflexes normal. Patient has a normal steady gait. Course Course Course Narrative: Pt c likely muscular pain, but could be herniated disc. Neuro exam shows no deficits. Not c/w AAA/epidural abscess/dissection.No high risk Hx (Incont, fever, immunosupp, recent surgery/LP, coag, signif trauma, wt loss, puls mass, hx/o Ca, TB, or IVDU) to warrant MRI/CT today. Not c/w Pyelo/UTI/kidney stone/spinal fx. Not cauda equina syndrome. X-ray obtained revealed degenerative changes and osteophytes otherwise no other acute processes. Therefore patient was given naproxen, Flexeril and prednisone reports moderate symptomatic relief. Will DC home with same treatment and instructions return if any new or worsening symptoms and to follow up with primary care provider. Farhad colon understands agrees with this plan. Medications Administered Discontinued Medications Generic Name Dose Route Start Last Admin Trade Name Freq PRN Reason Stop Dose Admin Cyclobenzaprine HCl 10 mg 06/12/22 16:13 06/12/22 16:22 Cyclobenzaprine Hcl 10 Mg Tablet PO 06/12/22 16:14 10 mg ONCE ONE Administration Naproxen 500 mg 06/12/22 16:13 06/12/22 16:23 Naproxen 500 Mg Tablet PO 06/12/22 16:14 500 mg ONCE ONE Administration Prednisone 60 mg 06/12/22 16:13 06/12/22 16:23 Prednisone 20 Mg Tablet PO 06/12/22 16:14 60 mg ONCE ONE Administration Medical Decision Making Independent Interpretation I performed an independent interpretation of an: Plain X-Ray (Lumbar spine x-ray reviewed by myself agreeable radiologist report) Radiology Impression Discussion of test interpretation with radiology: I have reviewed the radiologist's reading. Radiologist Impression: CLINICAL INFORMATION: Low back pain. COMPARISON: None available. TECHNIQUE: Three views of the lumbosacral spine. FINDINGS: There is normal lumbar lordosis and spinal alignment. The vertebral bodies are intact. Mild anterior osteophyte formation is seen at L3-L4 and moderate anterior osteophyte formation is seen off of L5 at L4-L5. The intervertebral disc spaces are unremarkable. There is no acute fracture. The soft tissues are unremarkable. XR/XR lumbar spine 2-3V IMPRESSION: Degenerative osteophyte formation as detailed above without other significant abnormality. 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
== END 2022-06-12 17:53 | disposition home or self-care (01) ==
PROVIDERS: Emergency Provider Emergency Medicine
DX: M51.36 Other intervertebral disc degeneration, lumbar region (principal)
CPT/HCPCS: 72100; 99283

== ENCOUNTER 2022-06-25 19:14 | Emergency (ER) | payer OTHER, SELFPAY ==
[2022-06-25 19:26] VITALS: BP 138/91; PULSE 99; RESP 18; TEMP 36.8; O2SAT 100; BMI 36.2
--- NOTE | 2022-06-25 19:28 | ED.BACK ---
HPI - Back Pain/Injury General Chief Complaint: General Medical <DEVIN Arvizu - Last Filed: 06/25/22 19:35> Stated Complaint: back pain, no injury <DEVIN Arvizu - Last Filed: 06/25/22 19:35> Time Seen by Provider: 06/25/22 22:07 <DEVIN Arvizu - Last Filed: 06/25/22 19:35> Source: patient <Vianca Lynn MD - Last Filed: 06/25/22 23:26> Mode of arrival: ambulatory <Vianca Lynn MD - Last Filed: 06/25/22 23:26> History of Present Illness HPI Narrative: 42-year-old male who comes in with acute on chronic mid lower back pain and denies any IVDA use, denies any fever, chills and denies any bowel or bladder dysfunction and denies any bilateral lower extremity weakness or tingling. Patient states he is also diabetic but is unable to locate his metformin and does not have a primary care provider. <Vianca Lynn MD - Last Filed: 06/25/22 23:26> Related Data Home Medications: Previous Rx's Medication Instructions Recorded clindamycin HCl 300 mg capsule 300 mg PO TID 10 days #30 caps 05/17/22 docusate sodium 100 mg capsule 100 mg PO BID #30 caps 05/31/22 (Colace) cyclobenzaprine 10 mg tablet 10 mg PO Q8H #14 tabs 06/12/22 naproxen 500 mg tablet 500 mg PO BID PRN pain #14 tabs 06/12/22 prednisone 20 mg tablet 40 mg PO DAILY inflammation 5 days 06/12/22 #10 tabs cyclobenzaprine 5 mg tablet 5 mg PO BEDTIME PRN muscle spasm 06/25/22 #4 tabs metformin 1,000 mg tablet 1,000 mg PO BIDWMEAL #60 tabs 06/25/22 <DEVIN Arvizu - Last Filed: 06/25/22 19:35> Allergies/Adverse Reactions: Allergies Allergy/AdvReac Type Severity Reaction Status Date / Time acetaminophen [From Tylenol] Allergy Rash Verified 06/12/22 14:51 Peanut Butter Allergy Itching Verified 06/12/22 14:51 <DEVIN Arvizu - Last Filed: 06/25/22 19:35> Review of Systems Review of Systems: Pertinent positives and negatives as stated in HPI <Vianca Lynn MD - Last Filed: 06/25/22 23:26> PMFSH Past Medical History Source: nursing notes reviewed <Vianca Lynn MD - Last Filed: 06/25/22 23:26> Medical History: Medical History Thrombosed external hemorrhoid <DEVIN Arvizu - Last Filed: 06/25/22 19:35> Surgical History: Surgical History History of tonsillectomy <DEVIN Arvizu - Last Filed: 06/25/22 19:35> Social History Social History: Social History Patient Tobacco Use Status: Never used Tobacco Advance Directives: No Advance Directives Information Provided: No <DEVIN Arvizu - Last Filed: 06/25/22 19:35> Physical Exam Vital Signs: Vital Signs: Last Vital Signs Temp 97.0 F 06/25/22 22:35 Pulse 88 06/25/22 22:35 Resp 18 06/25/22 22:35 BP 133/84 06/25/22 22:35 Pulse Ox 96 06/25/22 22:35 O2 Del Method Room Air 06/25/22 22:35 BMI result Body Mass Index 36.2 <DEVIN Arvizu - Last Filed: 06/25/22 19:35> Vital Signs: Last Vital Signs Temp 97.0 F 06/25/22 22:35 Pulse 88 06/25/22 22:35 Resp 18 06/25/22 22:35 BP 133/84 06/25/22 22:35 Pulse Ox 96 06/25/22 22:35 O2 Del Method Room Air 06/25/22 22:35 BMI result Body Mass Index 36.2 VITAL SIGNS: Reviewed. GENERAL: Well developed, well nourished, in no acute distress. HEAD: Normocephalic/atraumatic EYES: PERRLA, EOMI LUNGS: Normal breath sounds. No adventitious sounds or accessory muscle use. SpO2<96> CARDIOVASCULAR: Regular rate and rhythm without noted murmurs ABDOMEN: Soft, non-tender, non-distended with bowel sounds. : [Rehabilitation Construction Specialist- Lauren Hurt] There is obvious bowel entire this noted to the glans penis and surrounding foreskin no involvement of the scrotum BACK: No midline vertebral spine tenderness or step-offs noted MUSCULOSKELETAL: No tenderness, deformities, or effusions noted on gross inspection. EXTREMITIES: No cyanosis, clubbing or edema. SKIN: Inspection of the skin reveals no rashes NEUROLOGIC: Alert and oriented x 4. Strength and sensation to light touch were grossly intact x 4, DTRs intact. <Vianca Lynn MD - Last Filed: 06/25/22 23:26> Course Course Course Narrative: RME - 42 yo male presenting with acute on chronic nontraumatic low back pain, right worse than left. Here for the same on 06/12 and had xrays down showing degenerative osteophyte formation. No recent trauma. No red flag symptoms of LBP. No PCP to follow up with. Reports 10/10 pain in triage. Patient later reported to nursing he is diabetic and off of his metformin. He has had trouble with my foreskin, difficulty retracting. Plan: treat pain and reassess, exam in treatment room <DEVIN Arvizu - Last Filed: 06/25/22 19:35> Medical Decision Making Medical Decision Making MDM Narrative: 42-year-old male who presents with acute on chronic back pain no red flag symptoms such as fever, chills, bowel or bladder dysfunction and no lower extremity weakness. Will provide combination analgesics to include lidocaine patch and discharge with a short course muscle relaxants to his pharmacy. On evaluation of his penis with appeals specialist at bedside I confirm that he in fact he does have balantitis and currently has medication for the treatment. Will provide patient with prescription for metformin. <Vianca Lynn MD - Last Filed: 06/25/22 23:26> Differential Diagnosis Please see the discussion above <Vianca Lynn MD - Last Filed: 06/25/22 23:26> Lab Data Please see discussion above <Vianca Lynn MD - Last Filed: 06/25/22 23:26> Labs: Lab Results 06/25/22 Range/Units 22:58 Urine Color Yellow Urine Appearance Cloudy Urine pH 6.0 (5.0-9.0) Ur Specific [place] >= 1.030 H (1.005-1.025) Urine Protein 100 (2+) H (Neg-Trace) mg/dL Urine Glucose (UA) >=1000 H (Negative) mg/dL Urine Ketones Trace (Negative) mg/dL Urine Blood Negative (Negative) Urine Nitrite Negative (Negative) Ur Leukocyte Esterase Negative (Negative) Urine RBC 0-2 (0-2) /HPF Urine WBC 0-5 (0-5) /HPF Ur Squamous Epith Cells 0-2 (0-2) /HPF Urine Bacteria None Seen (None Seen) Hyaline Casts 0-2 (0-2) /LPF <DEVIN Arvizu - Last Filed: 06/25/22 19:35> Lab Results 06/25/22 Range/Units 22:58 Urine Color Yellow Urine Appearance Cloudy Urine pH 6.0 (5.0-9.0) Ur Specific [place] >= 1.030 H (1.005-1.025) Urine Protein 100 (2+) H (Neg-Trace) mg/dL Urine Glucose (UA) >=1000 H (Negative) mg/dL Urine Ketones Trace (Negative) mg/dL Urine Blood Negative (Negative) Urine Nitrite Negative (Negative) Ur Leukocyte Esterase Negative (Negative) Urine RBC 0-2 (0-2) /HPF Urine WBC 0-5 (0-5) /HPF Ur Squamous Epith Cells 0-2 (0-2) /HPF Urine Bacteria None Seen (None Seen) Hyaline Casts 0-2 (0-2) /LPF <Vianca Lynn MD - Last Filed: 06/25/22 23:26> External Record Review External record reviewed: Outpatient record, Prior outpatient labs and Prior outpatient radiology <Vianca Lynn MD - Last Filed: 06/25/22 23:26> Chronic Conditions Patient?s care impacted by: Diabetes <Vianca Lynn MD - Last Filed: 06/25/22 23:26> Discharge Plan Discharge Clinical Impression: Balanitis, Acute exacerbation of chronic low back pain, Diabetes <DEVIN Arvizu - Last Filed: 06/25/22 19:35> Patient Disposition: Home, Self-Care <DEVIN Arvizu - Last Filed: 06/25/22 19:35> Instructions: Balanitis (ED), Lower Back Exercises (ED), Diabetes and Nutrition (ED), Diabetes and Exercise (ED) <DEVIN Arvizu - Last Filed: 06/25/22 19:35> Additional Instructions: 1. You have been treated completely for the bowel in tightest via the oral medication that you received this evening. You no longer need the topical medication. If the wounds do not resolve it is likely you have a sexually transmitted infection. 2. You have been prescribed medication for your underlying diabetes since you lost your prescription. However, you need to touch base with the primary care provider [facility]. 3. Ibuprofen 400 mg, orally with milk or food, every 6 hours as needed for your back pain. Take this in conjunction with a lidocaine patch which is also available [id number] and you should place it on the area of maximal tenderness as directed on the outside packaging. You have also received a prescription for muscle relaxant and should take this as prescribed. Return to the ER for any worsening symptoms. <DEVIN Arvizu - Last Filed: 06/25/22 19:35> Prescriptions: New cyclobenzaprine 5 mg tablet 5 mg PO BEDTIME PRN (Reason: muscle spasm) Qty: 4 0RF metformin 1,000 mg tablet 1,000 mg PO BIDWMEAL Qty: 60 0RF No Action clindamycin HCl 300 mg capsule 300 mg PO TID 10 Days Qty: 30 0RF docusate sodium [Colace] 100 mg capsule 100 mg PO BID Qty: 30 0RF naproxen 500 mg tablet 500 mg PO BID PRN (Reason: pain) Qty: 14 0RF cyclobenzaprine 10 mg tablet 10 mg PO Q8H Qty: 14 0RF prednisone 20 mg tablet 40 mg PO DAILY 5 Days Qty: 10 0RF <DEVIN Arvizu - Last Filed: 06/25/22 19:35>
[2022-06-25 22:00] VITALS: RESP 20
[2022-06-25 22:35] VITALS: BP 133/84; PULSE 88; RESP 18; TEMP 36.1; O2SAT 96
[2022-06-25 23:08] LABS: Appearance Urine Cloudy; Color Urine Yellow; Glucose Urine UA >=1000 mg/dL (Negative); Leukocyte Esterase Urine Negative (Negative); Nitrite Urine Negative (Negative); Specific Gravity - Urine >= 1.030 (1.005-1.025); UMIC TRIGGER UACC YES; Urine Blood Negative (Negative); Urine Ketones Trace mg/dL (Negative); Urine Protein 100 (2+) mg/dL (Neg-Trace)
[2022-06-25 23:10] LABS: Bacteria Urine None Seen (None Seen); Hyaline Casts Urine 0-2 /LPF (0-2); RBC Urine 0-2 /HPF (0-2); Squamous Epithelial Cell Urine 0-2 /HPF (0-2); WBC Urine 0-5 /HPF (0-5)
[2022-06-25] MEDS: Lidocaine 4 % Patch ADH..PATCH 1 PATCH TRANSDERMA (23:16)
[2022-06-25] MEDS: metFORMIN HCl 1,000 MG TABLET 1000 MG PO (23:17)
[2022-06-25] MEDS: Ibuprofen 400 MG TABLET PO (23:17)
[2022-06-25 23:26] LABS: Glucose, Whole Blood 248 mg/dL (60-115)
[2022-06-25] MEDS: metroNIDAZOLE 500 MG TABLET 2000 MG PO (23:33)
[2022-06-26 00:58] LABS: CT PCR NOT DETECTED (Not Detect.); NG PCR NOT DETECTED (Not Detect.)
== END 2022-06-25 23:38 | disposition home or self-care (01) ==
PROVIDERS: Emergency Provider Student in an Organized Health Care Education/Training Program
DX: N48.1 Balanitis (principal); M54.50 Low back pain, unspecified; E11.9 Type 2 diabetes mellitus without complications; Z79.899 Other long term (current) drug therapy
CPT/HCPCS: 0353U; 81001; 82947; 99283; 99284

== ENCOUNTER 2022-07-15 18:20 | Emergency (ER) | payer OTHER, SELFPAY ==
[2022-07-15 18:55] VITALS: BP 147/86; PULSE 82; RESP 18; TEMP 36.4; O2SAT 97; BMI 36.9
--- NOTE | 2022-07-15 19:01 | ED_ITS ---
HPI - General Adult General Chief complaint: Back Pain/Injury Stated complaint: lower back pain Time Seen by Provider: 07/15/22 19:01 Source: patient, RN notes reviewed and old records reviewed Mode of arrival: ambulatory Limitations: no limitations History of Present Illness HPI narrative: 42-year-old male presents for evaluation of lower back pain. This is the patient's 3rd visit in the last month for the same complaint. Denies any new injury His pain is worse with movement, especially standing up and sitting down He states ?I feel like there is something moving in my lower back. ? He occasionally has numbness and tingling No bladder or bowel incontinence The patient had an x-ray on June 14, 2022 He reports when he was treated with prednisone his pains into improved The patient does not have a primary doctor Related Data Previous Rx's Medication Instructions Recorded clindamycin HCl 300 mg capsule 300 mg PO TID 10 days #30 caps 05/17/22 docusate sodium 100 mg capsule 100 mg PO BID #30 caps 05/31/22 (Colace) cyclobenzaprine 10 mg tablet 10 mg PO Q8H #14 tabs 06/12/22 naproxen 500 mg tablet 500 mg PO BID PRN pain #14 tabs 06/12/22 prednisone 20 mg tablet 40 mg PO DAILY inflammation 5 days 06/12/22 #10 tabs cyclobenzaprine 5 mg tablet 5 mg PO BEDTIME PRN muscle spasm 06/25/22 #4 tabs metformin 1,000 mg tablet 1,000 mg PO BIDWMEAL #60 tabs 06/25/22 dexamethasone 4 mg tablet 4 mg PO BID #6 tabs 07/15/22 tramadol 50 mg tablet 50 mg PO TID PRN severe pain 07/15/22 (scale score 7-10) #12 tabs Allergies Allergy/AdvReac Type Severity Reaction Status Date / Time acetaminophen [From Tylenol] Allergy Rash Verified 07/15/22 18:55 Peanut Butter Allergy Itching Verified 07/15/22 18:55 Review of Systems Constitutional: Constitutional: Reports as per HPI, Denies chills, Denies fatigue, Denies fever(s) and Denies headache(s) ENT: Denies headache(s) Cardiovascular: Cardiovascular: Denies chest pain and Denies dyspnea Respiratory: Respiratory: Denies cough and Denies dyspnea Gastrointestinal: Gastrointestinal: Denies abdominal pain, Denies constipation and Denies vomiting Genitourinary: Genitourinary: Denies difficulty urinating and Denies dysuria Musculoskeletal: Musculoskeletal: Reports back pain Neurologic: Denies headache(s) and Denies focal weakness Endocrine: Endocrine: Denies fatigue PMFSH Past Medical History Medical History Thrombosed external hemorrhoid Surgical History History of tonsillectomy Social History Social History Patient Tobacco Use Status: Never used Tobacco Advance Directives: No Advance Directives Information Provided: Yes Physical Exam ED Vital Signs: Vital Signs - 24 hr 07/15/22 18:55 Temperature 97.5 F Pulse Rate 82 Respiratory Rate 18 Blood Pressure 147/86 H Pulse Oximetry 97 Oxygen Delivery Method Room Air BMI result Body Mass Index 36.9 Const General: healthy appearing, comfortable, no acute distress, alert and awake Nutritional Appearance: well nourished Orientation/consciousness: patient oriented x3 HENMT Head: Yes normocephalic and Yes atraumatic Throat: Yes posterior oropharynx normal Eyes Eyelids: Yes eyelids normal Conjunctivae: conjunctivae normal Sclerae: sclerae normal Corneas: corneas normal Pupils: Equal, round and reactive pupils present EOM: EOMs intact bilaterally Neck Neck: Yes full ROM Resp Effort & Inspection: normal respiratory effort, able to speak in complete sentences, no audible wheezes and not labored Auscultation: clear to auscultation bilaterally Cardio Rate: regular rate Rhythm: regular rhythm GI Inspection: No distended Palpation (GI): Soft to palpation, not firm, nontender, no guarding and not rigid Auscultation: normoactive bowel sounds Back/Spine/Pelvis Other: Tenderness across the lumbar region without focal deformity. Skin General skin exam: no rashes or lesions noted and elasticity normal Neuro General: patient oriented x3 Cranial nerves: Yes Equal, round and reactive pupils present and Yes Bilaterally intact EOM present Cognition (Neuro): normal cognition Motor exam (neuro): 5/5 motor strength present throughout Extrem Other: Moving all extremities well without any obvious deformities Medical Decision Making Medical Decision Making MDM Narrative: Patient has acute on chronic back pain without any new injury. No warning signs for cauda equina syndrome. There is no indication for emergent imaging. We will treat with Decadron and tramadol. The patient has allergy to Tylenol. Patient referred to outpatient [facility] for further evaluation and management of his chronic back pain Differential Diagnosis Acute on chronic back pain Radiculopathy Sciatica Muscle spasm Degenerative disc disease Discontinuation Discharge Plan Discharge Clinical Impression: Lumbar radiculopathy Patient Disposition: Home, Self-Care Instructions: Lumbar Radiculopathy (ED) Additional Instructions: Call to schedule follow-up You may benefit from an outpatient MRI Take dexamethasone twice daily for the next 3 days You may continue using ibuprofen or naproxen. Use tramadol for severe or breakthrough pain. This may make you sleepy, did not drink alcohol or drive after taking You may also use warm compresses or [id number] icy Hot/lidocaine patches Prescriptions: New dexamethasone 4 mg tablet 4 mg PO BID Qty: 6 0RF tramadol 50 mg tablet 50 mg PO TID PRN (Reason: severe pain (scale score 7-10)) Qty: 12 0RF No Action clindamycin HCl 300 mg capsule 300 mg PO TID 10 Days Qty: 30 0RF docusate sodium [Colace] 100 mg capsule 100 mg PO BID Qty: 30 0RF naproxen 500 mg tablet 500 mg PO BID PRN (Reason: pain) Qty: 14 0RF cyclobenzaprine 10 mg tablet 10 mg PO Q8H Qty: 14 0RF prednisone 20 mg tablet 40 mg PO DAILY 5 Days Qty: 10 0RF cyclobenzaprine 5 mg tablet 5 mg PO BEDTIME PRN (Reason: muscle spasm) Qty: 4 0RF metformin 1,000 mg tablet 1,000 mg PO BIDWMEAL Qty: 60 0RF Stand Alone Forms: Work/School Release Interventions: ED Discharge Assessment Last Done: 07/15/22 19:15 Discharge Date/Time: 07/15/22 19:16
== END 2022-07-15 19:16 | disposition home or self-care (01) ==
PROVIDERS: Emergency Provider Internal Medicine
DX: M54.16 Radiculopathy, lumbar region (principal); Z79.899 Other long term (current) drug therapy
CPT/HCPCS: 99282

== ENCOUNTER 2022-10-10 14:24 | Emergency (ER) | payer OTHER, SELFPAY ==
--- NOTE | ~2022-10-10 | XR_ITS ---
EXAMINATION: XR ANKLE, RIGHT CLINICAL INFORMATION: Pain after injury COMPARISON: None available. TECHNIQUE: AP, lateral, and mortise views of the right ankle. FINDINGS: The ankle mortise is stable. No significant soft tissue swelling is seen. No joint effusion is present. No fractures are seen. There is enthesopathy present at the Achilles tendon insertion. XR/XR ankle RT min 3V IMPRESSION: No evidence of an acute injury.
[2022-10-10 14:40] VITALS: BP 146/93; PULSE 79; RESP 16; TEMP 36.6; O2SAT 99; BMI 36.3
--- NOTE | 2022-10-10 14:48 | ED.LOWEXIN ---
HPI - Extremity Injury (Lower) General Chief Complaint: Extremity Injury, Lower Stated Complaint: R Ankle Injury Time Seen by Provider: 10/10/22 17:52 Source: patient Mode of arrival: ambulatory Limitations: no limitations History of Present Illness HPI Narrative: Patient is a 42 year old assigned male at with a history of hemorrhoids presenting to the emergency department today with right ankle pain and white discharge from his penis. Patient states that yesterday while bringing in the trash, he stepped wrong and twisted his right ankle. Patient states that he also went to urinate this morning and noticed a white discharge from the head of his penis. Patient states that is sexually active. Patient denies any head strike with the incident, loss of consciousness with the incident, numbness, tingling, dizziness, lightheadedness, abdominal pain, nausea, vomiting, fever, chills, blurry vision, double vision, loss of vision, chest pain, difficulty breathing, shortness of breath, back pain, night sweats, pain with urination, increased urinary frequency, increased urinary urgency, blood in his urine or stool, syncope or a near syncopal episode, bowel incontinence, bladder incontinence, bowel retention, bladder retention, or any other complaints at this time. MD complaint: ankle injury (right) and other (penile discharge) Onset (ago): hour(s) Place: home Severity: mild Severity scale (1-10): 3 Relieving factors: nothing Exacerbating factors: nothing Context: walking Other symptoms: none Related Data Previous Rx's Medication Instructions Recorded clindamycin HCl 300 mg capsule 300 mg PO TID 10 days #30 caps 05/17/22 docusate sodium 100 mg capsule 100 mg PO BID #30 caps 05/31/22 (Colace) cyclobenzaprine 10 mg tablet 10 mg PO Q8H #14 tabs 06/12/22 naproxen 500 mg tablet 500 mg PO BID PRN pain #14 tabs 06/12/22 prednisone 20 mg tablet 40 mg PO DAILY inflammation 5 days 06/12/22 #10 tabs cyclobenzaprine 5 mg tablet 5 mg PO BEDTIME PRN muscle spasm 06/25/22 #4 tabs metformin 1,000 mg tablet 1,000 mg PO BIDWMEAL #60 tabs 06/25/22 dexamethasone 4 mg tablet 4 mg PO BID #6 tabs 07/15/22 tramadol 50 mg tablet 50 mg PO TID PRN severe pain 07/15/22 (scale score 7-10) #12 tabs doxycycline hyclate 100 mg tablet 100 mg PO BID 7 days #14 tabs 10/10/22 fluconazole 150 mg tablet 150 mg PO Q3D 2 doses #2 tabs 10/10/22 (Diflucan) Allergies Allergy/AdvReac Type Severity Reaction Status Date / Time acetaminophen [From Tylenol] Allergy Rash Verified 07/15/22 18:55 Peanut Butter Allergy Itching Verified 07/15/22 18:55 Review of Systems Constitutional: Constitutional: Reports no additional constitutional complaints, Denies chills, Denies fever(s) and Denies night sweats Eyes: Eyes: Reports no additional eye complaints, Denies blurry vision, Denies change in vision, Denies diplopia, Denies eye discharge, Denies loss of vision and Denies eye pain ENT: Denies dizziness Cardiovascular: Cardiovascular: Reports no additional cardiovascular complaints, Denies chest pain, Denies lightheadedness, Denies Loss of Consciousness and Denies dyspnea Respiratory: Respiratory: Reports no additional respiratory complaints and Denies dyspnea Gastrointestinal: Gastrointestinal: Reports no additional gastrointestinal complaints, Denies abdominal pain, Denies melena, Denies hematochezia, Denies change in bowel habits and Denies change in stool character Genitourinary: Genitourinary: Reports no additional male genitourinary complaints, Denies hematuria, Denies oliguria, Denies difficulty urinating, Denies dysuria, Reports penile discharge (white), Denies urinary frequency, Denies urinary hesitancy, Denies urinary incontinence and Denies urinary urgency Musculoskeletal: Musculoskeletal: Reports no additional musculoskeletal complaints, Denies numbness and Denies tingling Comments: right ankle pain Neurologic: Denies dizziness, Denies loss of vision, Denies numbness and Denies tingling Psychiatric: Psychiatric: Reports no additional psychiatric complaints Endocrine: Endocrine: Reports no additional endocrine complaints Hematologic/Lymphatic: Hematologic/Lymphatic: Reports no additional hematologic/lymphatic complaints Allergic/Immunologic: Allergic/Immunologic: Reports no additional allergic/immunologic complaints PMFSH Past Medical History Attestation statement: The following information was validated with the patient. Source: old records reviewed and nursing notes reviewed Medical History Thrombosed external hemorrhoid Surgical History History of tonsillectomy Social History Social History Patient Tobacco Use Status: Never used Tobacco Smoked in Last 30 Days: No Use of substances other than those prescribed or required for medical reasons: No Advance Directives: No Advance Directives Information Provided: Yes Physical Exam Vital Signs: Vital Signs: Last Vital Signs Temp 97.8 F 10/10/22 18:19 Pulse 80 10/10/22 18:19 Resp 16 10/10/22 18:19 BP 135/90 H 10/10/22 18:19 Pulse Ox 97 10/10/22 18:19 O2 Del Method Room Air 10/10/22 18:19 BMI result Body Mass Index 36.3 Const: General: cooperative, no acute distress, alert and awake Nutritional Appearance: well nourished Orientation/consciousness: patient oriented x3 Limitations: no limitations HEENT: Head: Yes normal to inspection and Yes atraumatic Ears: hearing grossly normal bilaterally and external ears normal General nose exam: Normal external nose present, no nasal discharge noted and no epistaxis Face and sinus: Yes normal facial exam, No abrasion and No laceration Mouth: Normal oral and palatal mucosa present, no drooling and no muffled voice Eyes: General: appearance normal, both eyes and all related structures Periorbital: periorbital findings normal Eyelids: Yes eyelids normal Conjunctivae: conjunctivae normal Pupils: Equal, round and reactive pupils present EOM: EOMs intact bilaterally Neck: Neck: Yes normal visual inspection, Yes full ROM and Yes no lymphadenopathy Chest: Chest palpation & inspection: normal inspection of the chest Resp: Effort & Inspection: normal respiratory effort and able to speak in complete sentences GI: Inspection: Yes normal to inspection Neuro: General: patient oriented x3 and moves all extremities Cranial nerves: Yes Equal, round and reactive pupils present Cognition (Neuro): normal cognition Motor exam (neuro): 5/5 motor strength present throughout Sensory Exam: Normal double simultaneous stimulation for sensation Coordination: [id number] test normal Extrem: General: Yes normal to inspection, Yes full ROM and Yes capillary refill normal Psych: Appearance: grossly normal Mental Status: mental status grossly normal Affect: normal affect Attitude: cooperative Thought process: Normal thought process present Thought content: Normal thought content present Insight: Good insight present (Psych) Course Course Course Narrative: RME - 42 yo male presenting for evaluation of right ankle injury 2 hours ago. Twisted it while bringing out the trash. Ambulatory but w/ pain. Also new while penile discharge, no other urinary symptoms. Plan: ankle XR, CT/NG, UA Medications Administered Discontinued Medications Generic Name Dose Route Start Last Admin Trade Name Paulino PRN Reason Stop Dose Admin Ceftriaxone Sodium 500 mg/ 0 mg 10/10/22 17:55 10/10/22 18:12 Lidocaine HCl 1 ml IM 10/10/22 17:56 500 kit ONCE ONE Administration Medical Decision Making Medical Decision Making [facility] Narrative: Patient is a 42 year old assigned male at with a history of hemorrhoids presenting to the emergency department today with right ankle pain and penile discharge. Patient's physical exam was unremarkable. Patient deferred a penile examination and instead showed me a picture of the penile discharge on his mobile phone. The discharge pictured was a creamy white color and thick appearing in consistency. Patient's urine showed no acute process. Patient's gonorrhea and chlamydia tests are pending. Patient's right ankle x-ray showed no acute process. I explained my physical exam findings as well as all test results to the patient. I answered all questions asked by the patient. Patient's clinical presentation is most consistent with a right ankle sprain and penile yeast. However, given the patient is sexually active, will cover the patient for STI as well as yeast. I stressed the importance of the patient taking his medication as prescribed. I stressed the importance of the patient following up with his primary care provider. I stressed the importance of the patient returning to the emergency department immediately if his symptoms were to worsen or if he were to develop any dizziness, shortness of breath, difficulty breathing, chest pain, blurry vision, loss of vision, nausea, vomiting, abdominal pain, fever, chills, back pain, or any other complaints. Patient verbalized agreement and understanding with this treatment plan and discharge. Differential Diagnosis Differential Diagnoses: The differential diagnosis associated with the presentation includes Penile yeast Gonorrhea Chlamydia UTI Right ankle sprain Right ankle pain Right ankle fracture Right ankle injury Lab Data [facility] Lab Attestation statement: I reviewed the patient's lab results. My interpretation of these studies and their corresponding values is that they are grossly normal with the exception of the presently pending gonorrhea and chlamydia tests. Labs: Lab Results 10/10/22 Range/Units 15:37 Urine Color Yellow Urine Appearance Clear Urine pH 6.0 (5.0-9.0) Ur Specific [place] 1.025 (1.005-1.025) Urine Protein 100 (2+) H (Neg-Trace) mg/dL Urine Glucose (UA) Negative (Negative) mg/dL Urine Ketones Negative (Negative) mg/dL Urine Blood Negative (Negative) Urine Nitrite Negative (Negative) Ur Leukocyte Esterase Negative (Negative) Urine RBC 0-2 (0-2) /HPF Urine WBC 0-5 (0-5) /HPF Ur Squamous Epith Cells 0-2 (0-2) /HPF Urine Bacteria None Seen (None Seen) Hyaline Casts 0-2 (0-2) /LPF Independent Interpretation I performed an independent interpretation of an: Plain X-Ray Interpretation: My interpretation is in agreement with the radiologist's impression of this imaging study. EXAMINATION: XR ANKLE, RIGHT CLINICAL INFORMATION: Pain after injury? COMPARISON: None available.? TECHNIQUE: AP, lateral, and mortise views of the right ankle. FINDINGS: The ankle mortise is stable. No significant soft tissue swelling is seen. No joint effusion is present. No fractures are seen. There is enthesopathy present at the Achilles tendon insertion.? XR/XR ankle RT min 3V IMPRESSION: No evidence of an acute injury. Dictated By: Clement Awad MD Signed By: Electronically signed by Clement Awad MD 10/10/22 1547 Radiology Impression Discussion of test interpretation with radiology: I have reviewed the radiologist's reading. Prescription Management I considered prescription management with: Antibiotic (patient prescribed doxycycline for STI prophylaxis) and Other (patient prescribed fluconazole for penile yeast) Discharge Plan Discharge Clinical Impression: Yeast dermatitis of penis, Ankle sprain Patient Disposition: Home, Self-Care Instructions: Ankle Sprain (DC), Skin Yeast Infection (ED) Additional Instructions: Your STI testing is still pending at this time. Given your presentation, we will treat you prophylactically for STI. We will call you if your results are positive. Follow up with your primary care provider. Return to the emergency department immediately if your symptoms worsen or if you develop any dizziness, shortness of breath, difficulty breathing, chest pain, blurry vision, loss of vision, nausea, vomiting, abdominal pain, fever, chills, back pain, or any other complaints. Prescriptions: New fluconazole [Diflucan] 150 mg tablet 150 mg PO Q3D Qty: 2 0RF doxycycline hyclate 100 mg tablet 100 mg PO BID 7 Days Qty: 14 0RF No Action clindamycin HCl 300 mg capsule 300 mg PO TID 10 Days Qty: 30 0RF docusate sodium [Colace] 100 mg capsule 100 mg PO BID Qty: 30 0RF naproxen 500 mg tablet 500 mg PO BID PRN (Reason: pain) Qty: 14 0RF cyclobenzaprine 10 mg tablet 10 mg PO Q8H Qty: 14 0RF prednisone 20 mg tablet 40 mg PO DAILY 5 Days Qty: 10 0RF dexamethasone 4 mg tablet 4 mg PO BID Qty: 6 0RF tramadol 50 mg tablet 50 mg PO TID PRN (Reason: severe pain (scale score 7-10)) Qty: 12 0RF cyclobenzaprine 5 mg tablet 5 mg PO BEDTIME PRN (Reason: muscle spasm) Qty: 4 0RF metformin 1,000 mg tablet 1,000 mg PO BIDWMEAL Qty: 60 0RF Referrals: [facility] [place] [facility] [Provider Group] (Call to establish and follow up with a primary care provider. If you already have a primary care provider, please follow up with them.) [facility] [place] [facility] [Provider Group] (Call to establish and follow up with a primary care provider. If you already have a primary care provider, please follow up with them.) [facility] [place] [facility] [Provider Group] (Call to establish and follow up with a primary care provider. If you already have a primary care provider, please follow up with them.) Stand Alone Forms: Work/School Release Interventions: ED Discharge Assessment Last Done: 10/10/22 18:22 Discharge Date/Time: 10/10/22 18:22 Print Language: Upper Sorbian
[2022-10-10 15:45] LABS: Appearance Urine Clear; Color Urine Yellow; Glucose Urine UA Negative (Negative); Leukocyte Esterase Urine Negative (Negative); Nitrite Urine Negative (Negative); Specific Gravity - Urine 1.025 (1.005-1.025); UMIC TRIGGER UACC YES; Urine Blood Negative (Negative); Urine Ketones Negative (Negative); Urine Protein 100 (2+) mg/dL (Neg-Trace)
[2022-10-10 15:48] LABS: Bacteria Urine None Seen (None Seen); Hyaline Casts Urine 0-2 /LPF (0-2); RBC Urine 0-2 /HPF (0-2); Squamous Epithelial Cell Urine 0-2 /HPF (0-2); WBC Urine 0-5 /HPF (0-5)
[2022-10-10] MEDS: cefTRIAXone sodium 500 MG, Lidocaine HCl 1 % MPF 1 ML IM (18:12)
[2022-10-10 18:19] VITALS: BP 135/90; PULSE 80; RESP 16; TEMP 36.6; O2SAT 97
[2022-10-11 11:58] LABS: CT PCR NOT DETECTED (Not Detect.); NG PCR NOT DETECTED (Not Detect.)
== END 2022-10-10 18:22 | disposition home or self-care (01) ==
PROVIDERS: Physician Assistant; Emergency Provider Emergency Medicine
DX: S93.401A Sprain of unspecified ligament of right ankle, initial encounter (principal); X50.1XXA Overexertion from prolonged static or awkward postures, initial encounter; B37.49 Other urogenital candidiasis; Y93.E9 Activity, other interior property and clothing maintenance; Y92.038 Other place in apartment as the place of occurrence of the external cause; Y99.9 Unspecified external cause status
CPT/HCPCS: 0353U; 73610; 81001; 96372; 99284; J0696

== ENCOUNTER 2023-09-16 20:35 | Emergency (ER) | payer OTHER, SELFPAY ==
[2023-09-16 20:55] VITALS: BP 116/83; PULSE 88; RESP 18; TEMP 36.7; O2SAT 96; BMI 38.7
--- NOTE | 2023-09-16 20:55 | ED.GENADULT ---
HPI - General Adult General Chief complaint: General Medical Stated complaint: dehydrated, diabetic Time Seen by Provider: 09/16/23 22:05 Source: patient Mode of arrival: ambulatory Limitations: no limitations History of Present Illness ED Provider: Dr. Gupta HPI narrative: Patient states that he has not been taking his metformin in weeks, now with increased thirst and urination. In addition he states that his foreskin is swollen, cracked and painful with slight discharge Onset (ago): week(s) Severity: moderate Related Data Previous Rx's ?Medication ?Instructions ?Recorded clindamycin HCl 300 mg capsule 300 mg PO TID 10 days #30 caps 05/17/22 docusate sodium 100 mg capsule 100 mg PO BID #30 caps 05/31/22 (Colace) cyclobenzaprine 10 mg tablet 10 mg PO Q8H #14 tabs 06/12/22 naproxen 500 mg tablet 500 mg PO BID PRN pain #14 tabs 06/12/22 prednisone 20 mg tablet 40 mg (2 x 20 mg) PO DAILY 06/12/22 inflammation 5 days #10 tabs cyclobenzaprine 5 mg tablet 5 mg PO BEDTIME PRN muscle spasm 06/25/22 #4 tabs metformin 1,000 mg tablet 1,000 mg PO BIDWMEAL #60 tabs 06/25/22 dexamethasone 4 mg tablet 4 mg PO BID #6 tabs 07/15/22 tramadol 50 mg tablet 50 mg PO TID PRN severe pain 07/15/22 (scale score 7-10) #12 tabs doxycycline hyclate 100 mg tablet 100 mg PO BID 7 days #14 tabs 10/10/22 fluconazole 150 mg tablet 150 mg PO Q3D 2 doses #2 tabs 10/10/22 (Diflucan) clotrimazole 1 % topical cream 1 appl topical BID 4 weeks #90 09/16/23 (Lotrimin AF (clotrimazole)) grams Allergies Allergy/AdvReac Type Severity Reaction Status Date / Time acetaminophen [From Tylenol] Allergy Rash Verified 09/16/23 20:59 Peanut Butter Allergy Itching Verified 09/16/23 20:59 Review of Systems Review of Systems: Yes all other systems are reviewed and are negative Neurologic: Denies Sensory deficit (Neuro) PMFSH Past Medical History Medical History Thrombosed external hemorrhoid Surgical History History of tonsillectomy Social History Social History Patient Tobacco Use Status: Never used Tobacco Smoked in Last 30 Days: No Use of substances other than those prescribed or required for medical reasons: Yes Substance Use Type: Crack/Cocaine Substance Use Frequency: Occasionally Substance Use Frequency Other:: 2 Last Used Substance: Days (ago) Advance Directives: No Advance Directives Information Provided: No Do you have a plan to hurt others: No Plan Physical Exam ED Vital Signs: Vital Signs - 24 hr 09/16/23 20:55 09/16/23 22:04 09/17/23 00:22 Temperature 98.0 F 98.6 F 98.0 F Pulse Rate 88 72 74 Respiratory Rate 18 18 18 Blood Pressure 116/83 140/86 H 121/61 Pulse Oximetry 96 97 96 Oxygen Delivery Method Room Air Room Air Room Air BMI result Body Mass Index 38.7 Const General: healthy appearing Nutritional Appearance: obese Orientation/consciousness: oriented to person and patient oriented x3 Limitations: no limitations HENMT Head: Yes normal to inspection Ears: external ears normal General nose exam: Normal external nose present Mouth: Normal oral and palatal mucosa present and oropharynx normal Throat: Yes posterior oropharynx normal Eyes General: appearance normal, both eyes and all related structures Neck Neck: Yes normal visual inspection Chest Chest palpation & inspection: normal inspection of the chest Resp Auscultation: clear to auscultation bilaterally Cardio Jugular venous distension: no JVD Rate: regular rate Rhythm: regular rhythm Heart sounds: S1 normal heart sound present and S2 normal heart sound present GI Inspection: Yes normal to inspection Palpation (GI): Soft to palpation, nontender and No hepatosplenomegaly present Auscultation: normal bowel sounds Other: candidal balanitis to head of glans and foreskin Skin General skin exam: no rashes or lesions noted Neuro General: oriented to person and patient oriented x3 Cranial nerves: Yes CN's II-XII intact bilaterally Motor exam (neuro): 5/5 motor strength present throughout Sensory Exam: No Sensory deficit (Neuro) Extrem General: Yes normal to inspection Psych Appearance: grossly normal Course Course Course Narrative: This is a Rapid Medical Exam performed in triage by Cammy Moore PA-C. Full HPI, ROS and PE to be performed by primary ED provider. 43 year-old M w/ PMHx DM presenting to the ED c/o noncompliance with his Metformin x3 mos, +polydipsia & +polyuria which is worsening. And also reports cracked/tight foreskin. denies d/c or concern for STI PE: water cup in hand, ambulating w/steady gait, area not examined in triage Plan: Labs, UA Reevaluation(s) Reevaluation #1: will encourage patient to take his metformin. Will treat candidal balanitis with lotrimin cream Time: 23:14 Reevaluation #2: Sugars have come down will dc home Time: 00:23 Medications Administered Discontinued Medications Generic Name Dose Route Start Last Admin Trade Name Freq PRN Reason Stop Dose Admin Sodium Chloride 1,000 mls @ 999 mls/hr 09/16/23 22:15 09/16/23 22:20 Ns IVCONT 09/17/23 00:15 999 mls/hr .Q1H1M ESTEVAN Administration Insulin Human Lispro 10 unit 09/16/23 22:07 09/16/23 22:16 Insulin Lispro 100 Unit/Ml 3 Ml Vial SUBCUT 09/16/23 22:08 10 unit ONCE ONE Administration Medical Decision Making Differential Diagnosis Differential Diagnoses: The differential diagnosis associated with the presentation includes (DKA, hyperglycemia non ketotic, UTI, candiasis, balanitis) Admission/Observation Consideration of admission/observation: Escalation of care including admission/observation considered (upon arrival admission was considered) Lab Data 09/16/23 21:29 09/16/23 21:29 Labs: Lab Results 09/16/23 09/16/23 09/16/23 Range/Units 21:29 21:30 21:33 WBC 8.3 (4.8-10.8) X10*3/uL RBC 4.87 (4.60-5.80) X10*6/uL Hgb 15.0 (14.0-18.0) g/dl Hct 43.2 (42.0-52.0) % MCV 88.7 (80.0-98.0) fL MCH 30.8 (27.0-33.0) pg MCHC 34.7 (31.0-36.0) g/dl RDW 11.9 (11.0-16.0) % Plt Count 242 (160-400) X10*3/uL MPV 11.5 (9.4-12.4) fL Immature Gran % (Auto) 0.4 (0.0-0.4) % Neut % (Auto) 51.1 (45-73) % Lymph % (Auto) 38.1 (20-40) % [place] % (Auto) 7.5 (2-11) % Eos % (Auto) 2.4 (0-4) % Baso % (Auto) 0.5 (0-2) % Lymph # (Auto) 3.2 (1.2-4.9) X10*3/uL [place] # (Auto) 0.6 (0.1-1.2) X10*3/uL Eos # (Auto) 0.2 (0.0-0.4) X10*3/uL Baso # (Auto) 0.0 (0.0-0.2) X10*3/uL Abs Immat Gran (auto) 0.03 (0.00-0.03) X10*3/uL Absolute Neuts (auto) 4.3 (2.0-8.3) x10*3/uL Absolute Nucleated RBC 0.000 (0.0-0.012) X10*3/uL Nucleated RBC % (auto) 0.0 (0.0-0.2) /100WBC VBG pH 7.48 H (7.32-7.43) VBG pCO2 31 mmHg VBG pO2 160 mmHg VBG HCO3 23 (22-26) mmol/L VBG O2 Saturation 100.0 % VBG Base Excess 0.9 mmol/L Sodium 136 (135-145) mmol/L Potassium 4.5 (3.3-5.1) mmol/L Chloride 100 (96-108) mmol/L Carbon Dioxide 22 (22-29) mmol/L Anion Gap 19 (12-20) BUN 17 H (9-16) mg/dL Creatinine 0.96 (0.5-1.4) mg/dL Estim Creat Clear Calc 136.8 Estimated GFR > 60 POC Glucose 417 H* (60-115) mg/dL Random Glucose 475 H* (60-115) mg/dL Calcium 9.1 (8.4-10.2) mg/dL Magnesium 2.0 (1.6-2.6) mg/dL Total Bilirubin 0.5 (0.0-1.0) mg/dL Direct Bilirubin 0.1 (0.0-0.5) mg/dL AST 20 (5-37) U/L ALT 23 (0-40) U/L Alkaline Phosphatase 86 (39-117) U/L Total Protein 7.0 (6.5-8.0) g/dL Albumin 3.9 (3.5-5.0) g/dL Beta-Hydroxybutyrate 0.15 (0.02-0.27) mmol/L Urine Color Urine Appearance Urine pH (5.0-9.0) Ur Specific [place] (1.005-1.025) Urine Protein (Neg-Trace) mg/dL Urine Glucose (UA) (Negative) mg/dL Urine Ketones (Negative) mg/dL Urine Blood (Negative) Urine Nitrite (Negative) Ur Leukocyte Esterase (Negative) Urine RBC (0-2) /HPF Urine WBC (0-5) /HPF Ur Squamous Epith Cells (0-2) /HPF Urine Bacteria (None Seen) Hyaline Casts (0-2) /LPF 09/16/23 09/17/23 Range/Units 22:02 00:10 WBC (4.8-10.8) X10*3/uL RBC (4.60-5.80) X10*6/uL Hgb (14.0-18.0) g/dl Hct (42.0-52.0) % MCV (80.0-98.0) fL MCH (27.0-33.0) pg MCHC (31.0-36.0) g/dl RDW (11.0-16.0) % Plt Count (160-400) X10*3/uL MPV (9.4-12.4) fL Immature Gran % (Auto) (0.0-0.4) % Neut % (Auto) (45-73) % Lymph % (Auto) (20-40) % [place] % (Auto) (2-11) % Eos % (Auto) (0-4) % Baso % (Auto) (0-2) % Lymph # (Auto) (1.2-4.9) X10*3/uL [place] # (Auto) (0.1-1.2) X10*3/uL Eos # (Auto) (0.0-0.4) X10*3/uL Baso # (Auto) (0.0-0.2) X10*3/uL Abs Immat Gran (auto) (0.00-0.03) X10*3/uL Absolute Neuts (auto) (2.0-8.3) x10*3/uL Absolute Nucleated RBC (0.0-0.012) X10*3/uL Nucleated RBC % (auto) (0.0-0.2) /100WBC VBG pH (7.32-7.43) VBG pCO2 mmHg VBG pO2 mmHg VBG HCO3 (22-26) mmol/L VBG O2 Saturation % VBG Base Excess mmol/L Sodium (135-145) mmol/L Potassium (3.3-5.1) mmol/L Chloride (96-108) mmol/L Carbon Dioxide (22-29) mmol/L Anion Gap (12-20) BUN (9-16) mg/dL Creatinine (0.5-1.4) mg/dL Estim Creat Clear Calc Estimated GFR POC Glucose 325 H (60-115) mg/dL Random Glucose (60-115) mg/dL Calcium (8.4-10.2) mg/dL Magnesium (1.6-2.6) mg/dL Total Bilirubin (0.0-1.0) mg/dL Direct Bilirubin (0.0-0.5) mg/dL AST (5-37) U/L ALT (0-40) U/L Alkaline Phosphatase (39-117) U/L Total Protein (6.5-8.0) g/dL Albumin (3.5-5.0) g/dL Beta-Hydroxybutyrate (0.02-0.27) mmol/L Urine Color Yellow Urine Appearance Clear Urine pH 5.5 (5.0-9.0) Ur Specific [place] >= 1.030 H (1.005-1.025) Urine Protein 30 (1+) H (Neg-Trace) mg/dL Urine Glucose (UA) >=1000 H (Negative) mg/dL Urine Ketones Negative (Negative) mg/dL Urine Blood Negative (Negative) Urine Nitrite Negative (Negative) Ur Leukocyte Esterase Negative (Negative) Urine RBC 0-2 (0-2) /HPF Urine WBC 0-5 (0-5) /HPF Ur Squamous Epith Cells 0-2 (0-2) /HPF Urine Bacteria None Seen (None Seen) Hyaline Casts 0-2 (0-2) /LPF External Record Review External record reviewed: Outpatient record Prescription Management I considered prescription management with: Antibiotic (will not give antibiotics but patient needs antifungal medication for his balanitis) Chronic Conditions Patient?s care impacted by: Diabetes Social Determinants Patient?s care significantly limited by Social Determinants of Health including: Low income and Alcoholism and drug addiction in family Discharge Plan Discharge Clinical Impression: Hyperglycemia, Candidiasis, Balanitis Patient Disposition: Home, Self-Care Instructions: Balanitis (ED), Diabetic Hyperglycemia (ED) Additional Instructions: You must take your metformin everyday Prescriptions: New clotrimazole [Lotrimin AF (clotrimazole)] 1 % cream 1 appl topical BID 28 Days Qty: 90 0RF No Action clindamycin HCl 300 mg capsule 300 mg PO TID 10 Days Qty: 30 0RF docusate sodium [Colace] 100 mg capsule 100 mg PO BID Qty: 30 0RF naproxen 500 mg tablet 500 mg PO BID PRN (Reason: pain) Qty: 14 0RF cyclobenzaprine 10 mg tablet 10 mg PO Q8H Qty: 14 0RF prednisone 20 mg tablet 40 mg PO DAILY 5 Days Qty: 10 0RF dexamethasone 4 mg tablet 4 mg PO BID Qty: 6 0RF tramadol 50 mg tablet 50 mg PO TID PRN (Reason: severe pain (scale score 7-10)) Qty: 12 0RF cyclobenzaprine 5 mg tablet 5 mg PO BEDTIME PRN (Reason: muscle spasm) Qty: 4 0RF metformin 1,000 mg tablet 1,000 mg PO BIDWMEAL Qty: 60 0RF fluconazole [Diflucan] 150 mg tablet 150 mg PO Q3D Qty: 2 0RF doxycycline hyclate 100 mg tablet 100 mg PO BID 7 Days Qty: 14 0RF Referrals: Physician,Unknown J [Primary Care Provider] - 5 days Print Language: [place]
[2023-09-16 21:33] LABS: MANUAL DIFF FLAG NO
[2023-09-16 21:36] LABS: Basophils Percent Auto 0.5 % (0-2); Eosinophils Absolute Auto 0.2 X10*3/uL (0.0-0.4); Eosinophils Percent Auto 2.4 % (0-4); Hematocrit 43.2 % (42.0-52.0); Imm Gran Abs Auto 0.03 X10*3/uL (0.00-0.03); Imm Gran Pct Auto 0.4 % (0.0-0.4); Lymphocytes Absolute Auto 3.2 X10*3/uL (1.2-4.9); Lymphocytes Percent Auto 38.1 % (20-40); Mean Corpuscular HGB Conc 34.7 g/dl (31.0-36.0); Mean Corpuscular Hemoglobin 30.8 pg (27.0-33.0); Mean Corpuscular Volume 88.7 fL (80.0-98.0); Mean Platelet Volume 11.5 fL (9.4-12.4); Monocytes Absolute Auto 0.6 X10*3/uL (0.1-1.2); Monocytes Percent Auto 7.5 % (2-11); Neutrophils Absolute Auto 4.3 x10*3/uL (2.0-8.3); Neutrophils Percent Auto 51.1 % (45-73); Platelet Count 242 X10*3/uL (160-400); Red Blood Count 4.87 X10*6/uL (4.60-5.80); Red Cell Distribution Width 11.9 % (11.0-16.0); White Blood Count 8.3 X10*3/uL (4.8-10.8)
[2023-09-16 21:39] LABS: VBG Base Excess 0.9 mmol/L; VBG HCO3 23 mmol/L (22-26); VBG pCO2 31 mmHg; VBG pH 7.48 (7.32-7.43); VBG pO2 160 mmHg
[2023-09-16 21:39] LABS: Venous Blood Gas Refer to POC result
[2023-09-16 21:50] LABS: Beta-Hydroxybutyrate 0.15 mmol/L (0.02-0.27)
[2023-09-16 21:57] LABS: Alanine Aminotransferase 23 U/L (0-40); Albumin Level 3.9 g/dL (3.5-5.0); Alkaline Phosphatase 86 U/L (39-117); Anion Gap 19 (12-20); Aspartate Amino Transferase 20 U/L (5-37); Bilirubin Direct 0.1 mg/dL (0.0-0.5); Bilirubin Total 0.5 mg/dL (0.0-1.0); Blood Urea Nitrogen 17 mg/dL (9-16); Calcium 9.1 mg/dL (8.4-10.2); Carbon Dioxide 22 mmol/L (22-29); Chloride 100 mmol/L (96-108); Creatinine Clr Calc Pharmacy 136.8; Estimated Glomerular Filt Rate > 60; Glucose Random 475 mg/dL (60-115); Potassium 4.5 mmol/L (3.3-5.1); Sodium 136 mmol/L (135-145)
[2023-09-16 22:00] LABS: Glucose, Whole Blood 417 mg/dL (60-115)
[2023-09-16 22:04] VITALS: BP 140/86; PULSE 72; RESP 18; TEMP 37; O2SAT 97
[2023-09-16] MEDS: Insulin Lispro 100 UNIT/ML 3 ML VIAL 10 UNIT SUBCUT (22:16)
[2023-09-16] MEDS: 0.9 % Sodium Chloride 1,000 ML 999 ML IVCONT (22:20)
[2023-09-16 22:22] LABS: Appearance Urine Clear; Color Urine Yellow; Glucose Urine UA >=1000 mg/dL (Negative); Leukocyte Esterase Urine Negative (Negative); Nitrite Urine Negative (Negative); PH 5.5 (5.0-9.0); Specific Gravity - Urine >= 1.030 (1.005-1.025); UMIC TRIGGER UACC YES; Urine Blood Negative (Negative); Urine Ketones Negative (Negative); Urine Protein 30 (1+) mg/dL (Neg-Trace)
[2023-09-16 22:27] LABS: Bacteria Urine None Seen (None Seen); Hyaline Casts Urine 0-2 /LPF (0-2); RBC Urine 0-2 /HPF (0-2); Squamous Epithelial Cell Urine 0-2 /HPF (0-2); WBC Urine 0-5 /HPF (0-5)
--- NOTE | 2023-09-16 22:32 | PC.NURSE ---
Patient grossly noncompliant with his DM, did not know any consequences of uncontrolled diabetes, does not check his sugar at home, does not consistently take his metformin, patient educated on the seriousness of not keeping blood sugars under control. c/o difficulty urinating due to swollen foreskin .
[2023-09-17 00:14] LABS: Glucose, Whole Blood 325 mg/dL (60-115)
[2023-09-17 00:22] VITALS: BP 121/61; PULSE 74; RESP 18; TEMP 36.7; O2SAT 96
[2023-09-17] MEDS: 0.9 % Sodium Chloride 1,000 ML 999 ML IVCONT (01:00)
[2023-09-17 06:28] VITALS: BP 108/68; PULSE 73; RESP 18; TEMP 36.8; O2SAT 97
== END 2023-09-17 02:30 | disposition home or self-care (01) ==
PROVIDERS: Physician Assistant; Emergency Provider Emergency Medicine
DX: E11.65 Type 2 diabetes mellitus with hyperglycemia (principal); B37.42 Candidal balanitis; E86.0 Dehydration; R35.0 Frequency of micturition; R11.0 Nausea; F14.10 Cocaine abuse, uncomplicated; Z79.84 Long term (current) use of oral hypoglycemic drugs; Z91.148 Patient's other noncompliance with medication regimen for other reason; Z79.899 Other long term (current) drug therapy
CPT/HCPCS: 36415; 80048; 80076; 81001; 82010; 82803; 82947; 83735; 85025; 96360; 96361; 99284

== ENCOUNTER 2023-09-22 21:55 | Emergency (ER) | payer OTHER, SELFPAY ==
[2023-09-22 21:56] VITALS: BP 153/96; PULSE 107; RESP 18; TEMP 36.8; O2SAT 97; BMI 36.3
[2023-09-22 22:02] LABS: Glucose, Whole Blood 285 mg/dL (60-115)
[2023-09-22 22:25] LABS: MANUAL DIFF FLAG NO
[2023-09-22 22:26] LABS: Basophils Absolute Auto 0.1 X10*3/uL (0.0-0.2); Basophils Percent Auto 0.5 % (0-2); Eosinophils Absolute Auto 0.2 X10*3/uL (0.0-0.4); Eosinophils Percent Auto 2.5 % (0-4); Hematocrit 45.3 % (42.0-52.0); Hemoglobin 15.7 g/dl (14.0-18.0); Imm Gran Abs Auto 0.03 X10*3/uL (0.00-0.03); Imm Gran Pct Auto 0.3 % (0.0-0.4); Lymphocytes Absolute Auto 3.2 X10*3/uL (1.2-4.9); Lymphocytes Percent Auto 34.2 % (20-40); Mean Corpuscular HGB Conc 34.7 g/dl (31.0-36.0); Mean Corpuscular Hemoglobin 31.3 pg (27.0-33.0); Mean Corpuscular Volume 90.4 fL (80.0-98.0); Mean Platelet Volume 11.9 fL (9.4-12.4); Monocytes Absolute Auto 0.6 X10*3/uL (0.1-1.2); Monocytes Percent Auto 6.9 % (2-11); Neutrophils Absolute Auto 5.2 x10*3/uL (2.0-8.3); Neutrophils Percent Auto 55.6 % (45-73); Platelet Count 243 X10*3/uL (160-400); Red Blood Count 5.01 X10*6/uL (4.60-5.80); Red Cell Distribution Width 12.2 % (11.0-16.0); White Blood Count 9.3 X10*3/uL (4.8-10.8)
[2023-09-22 22:32] LABS: Appearance Urine Clear; Color Urine Yellow; Glucose Urine UA >=1000 mg/dL (Negative); Leukocyte Esterase Urine Negative (Negative); Nitrite Urine Negative (Negative); Specific Gravity - Urine >= 1.030 (1.005-1.025); UMIC TRIGGER UACC YES; Urine Blood Negative (Negative); Urine Ketones Trace mg/dL (Negative); Urine Protein 300 (3+) mg/dL (Neg-Trace)
[2023-09-22 22:42] LABS: Alanine Aminotransferase 24 U/L (0-40); Albumin Level 4.2 g/dL (3.5-5.0); Alkaline Phosphatase 75 U/L (39-117); Anion Gap 16 (12-20); Aspartate Amino Transferase 19 U/L (5-37); Beta-Hydroxybutyrate 0.11 mmol/L (0.02-0.27); Bilirubin Total 0.5 mg/dL (0.0-1.0); Blood Urea Nitrogen 13 mg/dL (9-16); Calcium 10.2 mg/dL (8.4-10.2); Carbon Dioxide 25 mmol/L (22-29); Chloride 101 mmol/L (96-108); Creatinine Clr Calc Pharmacy 158.7; Estimated Glomerular Filt Rate > 60; Glucose Random 295 mg/dL (60-115); Potassium 3.8 mmol/L (3.3-5.1); Sodium 138 mmol/L (135-145); Total Protein 7.4 g/dL (6.5-8.0)
[2023-09-22 22:48] LABS: Bacteria Urine None Seen (None Seen); Hyaline Casts Urine 0-2 /LPF (0-2); RBC Urine 0-2 /HPF (0-2); UACC Culture Trigger YES
--- NOTE | 2023-09-23 00:22 | ED_ITS ---
HPI - General Adult General Chief complaint: Recheck/Abnormal Lab/Rx Stated complaint: 430 sugar level Time Seen by Provider: 09/23/23 00:06 Source: patient and old records reviewed Mode of arrival: ambulatory Limitations: no limitations History of Present Illness ED Provider: BROOKS TARIQ narrative: 43 yo male with PMH of DM here with c/o persistent penile discomfort but some improvement on lotrimin he is also worried as BS have been 400s and he notes that he is eating rice but is taking his metformin 1,000mg BID. He has never been on insulin before but has a hard time doing the diet. He has a glucometer. MD complaint: hyperglycemia Onset (ago): month(s) Radiation: non-radiation Severity: moderate Relieving factors: none Exacerbating factors: eating Associated symptoms: denies other symptoms Treatments prior to arrival: other (metformin) Related Data Previous Rx's ?Medication ?Instructions ?Recorded clindamycin HCl 300 mg capsule 300 mg PO TID 10 days #30 caps 05/17/22 docusate sodium 100 mg capsule 100 mg PO BID #30 caps 05/31/22 (Colace) cyclobenzaprine 10 mg tablet 10 mg PO Q8H #14 tabs 06/12/22 naproxen 500 mg tablet 500 mg PO BID PRN pain #14 tabs 06/12/22 prednisone 20 mg tablet 40 mg (2 x 20 mg) PO DAILY 06/12/22 inflammation 5 days #10 tabs cyclobenzaprine 5 mg tablet 5 mg PO BEDTIME PRN muscle spasm 06/25/22 #4 tabs metformin 1,000 mg tablet 1,000 mg PO BIDWMEAL #60 tabs 06/25/22 dexamethasone 4 mg tablet 4 mg PO BID #6 tabs 07/15/22 tramadol 50 mg tablet 50 mg PO TID PRN severe pain 07/15/22 (scale score 7-10) #12 tabs doxycycline hyclate 100 mg tablet 100 mg PO BID 7 days #14 tabs 10/10/22 fluconazole 150 mg tablet 150 mg PO Q3D 2 doses #2 tabs 10/10/22 (Diflucan) clotrimazole 1 % topical cream 1 appl topical BID 4 weeks #90 09/16/23 (Lotrimin AF (clotrimazole)) grams metformin 1,000 mg tablet 1,000 mg PO BID #60 tabs 09/17/23 cephalexin 500 mg capsule 500 mg PO QID 7 days #28 caps 09/23/23 insulin glargine 100 unit/mL (3 10 unit (0.1 mL) subcut QPM #15 mL 09/23/23 mL) subcutaneous pen (Lantus Solostar U-100 Insulin) mupirocin 2 % topical ointment 1 appl topical BID 7 days #15 grams 09/23/23 Allergies Allergy/AdvReac Type Severity Reaction Status Date / Time acetaminophen [From Tylenol] Allergy Rash Verified 09/22/23 21:59 Peanut Butter Allergy Itching Verified 09/22/23 21:59 Review of Systems 2 Review of Systems: Constitutional : No Fever, No Chills, No Fatigue ENT/Mouth : No sore throat, No Rhinorrhea Eyes: No Eye Pain, No Swelling, No Redness Cardiovascular : No Chest Pain, No SOB, No Dyspnea on Exertion Respiratory : No Cough, No Sputum Gastrointestinal : No Nausea, No Vomiting, No Diarrhea, No abdominal Pain Genitourinary : No Dysuria, No Urinary Frequency, No Hematuria, Musculoskeletal : No joint pain, No Myalgias, No Joint Swelling Skin : No Skin Lesions, No rash Neuro : No Weakness, No Numbness, No Dizziness, no Headache Psych : No Anxiety/Panic, No Depression Heme/Lymph: No Bruising, No Bleeding,No Lymphadenopathy Endocrine : pos Polyuria, pos Polydipsia All other systems reviewed and are negative [facility] Past Medical History Attestation statement: The following information was validated with the patient. Source: old records reviewed Medical History Diabetes Thrombosed external hemorrhoid Surgical History History of tonsillectomy Social History Social History Patient Tobacco Use Status: Never used Tobacco Substance Use Type: Crack/Cocaine Physical Exam ED Vital Signs: Vital Signs - 24 hr 09/22/23 21:56 09/23/23 00:24 Temperature 98.2 F 98.7 F Pulse Rate 107 H 76 Respiratory Rate 18 18 Blood Pressure 153/96 H 120/85 Pulse Oximetry 97 97 Oxygen Delivery Method Room Air Room Air BMI result Body Mass Index 36.3 Appearance: Alert. Oriented X3. No acute distress. Eyes: Pupils equal, round and reactive to light. ENT: Pharynx normal. Neck: Normal inspection. Neck supple. CVS: Normal heart rate and rhythm. Pulses normal. Respiratory: No respiratory distress. Breath sounds normal. Abdomen: Soft and nontender. Skin: Skin warm and dry. Normal skin color. Normal skin turgor. Extremities: No lower extremity edema. No calf ttp Neuro: Oriented X 3. No motor deficit. No sensory deficit. Medical Decision Making Medical Decision Making [facility] Narrative: 43 yo male with PMH of DM here with c/o elevated BS and not doing well with diet eating rice - BS 400s at home he has a glucometer at this time will dose with 10 units of lantus on top of metformin he is going to get a PCP he c/o urinary symptoms has WBC in urine will start on cephalexin to cover as well as balanitis and mupiricon he still has clotrimazole. Differential Diagnosis Differential Diagnoses: The differential diagnosis associated with the presentation includes hyperglycemia, poor diet control Admission/Observation Consideration of admission/observation: Escalation of care including admission/observation considered no signs of DKA can be treated as outpatient Lab Data [facility] Lab Attestation statement: I reviewed the patient's lab results. 09/22/23 22:12 09/22/23 22:12 Labs: Lab Results 09/22/23 09/22/23 09/22/23 Range/Units 21:59 22:12 22:14 WBC 9.3 (4.8-10.8) X10*3/uL RBC 5.01 (4.60-5.80) X10*6/uL Hgb 15.7 (14.0-18.0) g/dl Hct 45.3 (42.0-52.0) % MCV 90.4 (80.0-98.0) fL MCH 31.3 (27.0-33.0) pg MCHC 34.7 (31.0-36.0) g/dl RDW 12.2 (11.0-16.0) % Plt Count 243 (160-400) X10*3/uL MPV 11.9 (9.4-12.4) fL Immature Gran % (Auto) 0.3 (0.0-0.4) % Neut % (Auto) 55.6 (45-73) % Lymph % (Auto) 34.2 (20-40) % [place] % (Auto) 6.9 (2-11) % Eos % (Auto) 2.5 (0-4) % Baso % (Auto) 0.5 (0-2) % Lymph # (Auto) 3.2 (1.2-4.9) X10*3/uL [place] # (Auto) 0.6 (0.1-1.2) X10*3/uL Eos # (Auto) 0.2 (0.0-0.4) X10*3/uL Baso # (Auto) 0.1 (0.0-0.2) X10*3/uL Abs Immat Gran (auto) 0.03 (0.00-0.03) X10*3/uL Absolute Neuts (auto) 5.2 (2.0-8.3) x10*3/uL Absolute Nucleated RBC 0.000 (0.0-0.012) X10*3/uL Nucleated RBC % (auto) 0.0 (0.0-0.2) /100WBC Sodium 138 (135-145) mmol/L Potassium 3.8 (3.3-5.1) mmol/L Chloride 101 (96-108) mmol/L Carbon Dioxide 25 (22-29) mmol/L Anion Gap 16 (12-20) BUN 13 (9-16) mg/dL Creatinine 0.80 (0.5-1.4) mg/dL Estim Creat Clear Calc 158.7 Estimated GFR > 60 POC Glucose 285 H (60-115) mg/dL Random Glucose 295 H (60-115) mg/dL Calcium 10.2 D (8.4-10.2) mg/dL Total Bilirubin 0.5 (0.0-1.0) mg/dL AST 19 (5-37) U/L ALT 24 (0-40) U/L Alkaline Phosphatase 75 (39-117) U/L Total Protein 7.4 (6.5-8.0) g/dL Albumin 4.2 (3.5-5.0) g/dL Beta-Hydroxybutyrate 0.11 (0.02-0.27) mmol/L Urine Color Yellow Urine Appearance Clear Urine pH 6.0 (5.0-9.0) Ur Specific [place] >= 1.030 H (1.005-1.025) Urine Protein 300 (3+) H (Neg-Trace) mg/dL Urine Glucose (UA) >=1000 H (Negative) mg/dL Urine Ketones Trace (Negative) mg/dL Urine Blood Negative (Negative) Urine Nitrite Negative (Negative) Ur Leukocyte Esterase Negative (Negative) Urine RBC 0-2 (0-2) /HPF Urine WBC 11-20 H (0-5) /HPF Ur Squamous Epith Cells 3-5 (0-2) /HPF Urine Bacteria None Seen (None Seen) Hyaline Casts 0-2 (0-2) /LPF External Record Review External record reviewed: Inpatient record Prescription Management I considered prescription management with: Antibiotic and Other Chronic Conditions Patient?s care impacted by: Diabetes Discharge Plan Discharge Clinical Impression: Acute balanitis due to infection, Acute hyperglycemia Patient Disposition: Home, Self-Care Instructions: Balanitis (ED), Diabetic Hyperglycemia (ED) Additional Instructions: continue the clotrimazole after that is applied x 1 hour then use the mupirocin you must check your blood sugars frequently return for worsening symptoms or concerns monitor blood sugar closely get a primary care doctor as soon as possible return for any worsening symptoms or concerns. Prescriptions: New cephalexin 500 mg capsule 500 mg PO QID 7 Days Qty: 28 0RF mupirocin 2 % ointment 1 appl topical BID 7 Days Qty: 15 0RF insulin glargine [Lantus Solostar U-100 Insulin] 100 unit/mL (3 mL) insulin pen 10 unit subcut QPM Qty: 15 0RF No Action clindamycin HCl 300 mg capsule 300 mg PO TID 10 Days Qty: 30 0RF docusate sodium [Colace] 100 mg capsule 100 mg PO BID Qty: 30 0RF naproxen 500 mg tablet 500 mg PO BID PRN (Reason: pain) Qty: 14 0RF cyclobenzaprine 10 mg tablet 10 mg PO Q8H Qty: 14 0RF prednisone 20 mg tablet 40 mg PO DAILY 5 Days Qty: 10 0RF dexamethasone 4 mg tablet 4 mg PO BID Qty: 6 0RF tramadol 50 mg tablet 50 mg PO TID PRN (Reason: severe pain (scale score 7-10)) Qty: 12 0RF clotrimazole [Lotrimin AF (clotrimazole)] 1 % cream 1 appl topical BID 28 Days Qty: 90 0RF metformin 1,000 mg tablet 1,000 mg PO BID Qty: 60 0RF cyclobenzaprine 5 mg tablet 5 mg PO BEDTIME PRN (Reason: muscle spasm) Qty: 4 0RF metformin 1,000 mg tablet 1,000 mg PO BIDWMEAL Qty: 60 0RF fluconazole [Diflucan] 150 mg tablet 150 mg PO Q3D Qty: 2 0RF doxycycline hyclate 100 mg tablet 100 mg PO BID 7 Days Qty: 14 0RF Print Language: [place]
[2023-09-23 00:24] VITALS: BP 120/85; PULSE 76; RESP 18; TEMP 37.1; O2SAT 97
[2023-09-23 01:03] LABS: Glucose, Whole Blood 255 mg/dL (60-115)
[2023-09-23 01:40] VITALS: BP 125/86; PULSE 76; RESP 16; TEMP 36.9; O2SAT 98
== END 2023-09-23 01:41 | disposition home or self-care (01) ==
PROVIDERS: Emergency Provider Emergency Medicine
DX: N48.1 Balanitis (principal); E11.65 Type 2 diabetes mellitus with hyperglycemia; Z79.85 Long-term (current) use of injectable non-insulin antidiabetic drugs; Z79.899 Other long term (current) drug therapy; Z79.4 Long term (current) use of insulin
CPT/HCPCS: 36415; 80053; 81001; 82010; 82947; 85025; 87086; 87088; 99283; 99284

== ENCOUNTER 2024-01-30 11:15 | Inpatient (IN) | payer OTHER, SELFPAY ==
--- NOTE | ~2024-01-30 | CT_ITS ---
EXAMINATION: CT SOFT TISSUE NECK WITH CONTRAST CLINICAL INFORMATION: Left-sided peritonsillar abscess. COMPARISON: CT neck from 05/17/2022. TECHNIQUE: Multidetector helical imaging was performed in the axial plane following the administration of 70 mL of Omnipaque 350 intravenous contrast. Multiple axial reformats and coronal/sagittal reconstructions were created the technologist workstation for review. This CT examination was performed using dose optimization techniques as appropriate, variously including the following: *Automated exposure control. *Adjustment of mA and/or kV according to patient size (this includes techniques or standardized protocols for targeted exams where dose is matched to indication/reason for exam; i.e. extremities or head). *Use of iterative reconstruction technique. DLP: 949 mGy-cm FINDINGS: Prominent heterogeneous enlargement of the palatine tonsils abutting in the midline. Moderate, amorphous, confluent edema surrounding the left palatine tonsil extending into the left submandibular space and into the left lateral aspect of the supraglottic larynx. No demonstrated discrete, walled-off tonsillar or peritonsillar fluid collection. No demonstrated enhancing soft tissue mass. There is narrowing of the nasopharyngeal airway. The remainder of the airways remain widely patent. No significant cutaneous thickening or subcutaneous inflammation. No discrete fluid collection within the deep tissues of the neck. The premaxillary, retromaxillary, pterygopalatine fossa, orbital apical, right parapharyngeal, and prelaryngeal adipose tissue is maintained. No retropharyngeal collection. Normal appearance of the parotid and thyroid glands. Normal appearance of the right submandibular gland. Prominent bilateral level IIa lymph nodes with maintained normal fatty romy, measuring up to 2.3 cm on the right and 2 cm on the left. Bilateral level III lymph nodes measure up to 1.2 cm. Otherwise, scattered subcentimeter lymph nodes bilaterally, none of which are pathologically enlarged or abnormally enhancing. No demonstrated focal lesion or abnormal enhancement within the intrinsic tissues of the tongue or floor of mouth. Normal mucosal contours of the remainder of the pharynx and larynx. Normal appearance of the hyoid bone, thyroid cartilage, or cartilaginous trachea. No radiopaque foreign bodies. The atlantooccipital and atlantoaxial articulations remain well aligned. Straightening of the normal cervical lordosis. There is anatomic alignment of the vertebral bodies and posterior elements. No evidence of acute fracture or subluxation of the cervical spine. The vertebral body heights are maintained. Moderate degenerative disc disease at C4-C5 and C5-C6. The intervertebral disc spaces are maintained. No evidence of epidural collection. There is no prevertebral soft tissue swelling. Normal opacification of the cervical arterial and venous structures. The visualized portion of the skull base is without significant abnormalities. Moderate mucosal thickening of the paranasal sinuses. Small right-sided mastoid effusion. Odontogenic enamel erosion of the maxillary left 3rd molar. No demonstrated significant periapical odontogenic disease. CT Upper Chest: The visualized lung apices and upper mediastinum are within normal limits. CT/CT soft tissue neck w IV con IMPRESSION: 1. Prominent heterogeneous enlargement of the palatine tonsils abutting in the midline. Moderate, amorphous, confluent edema surrounding the left palatine tonsil extending into the left submandibular space and into the left lateral aspect of the supraglottic larynx. No demonstrated discrete, walled-off fluid collection. No demonstrated enhancing soft tissue mass. There is narrowing of the nasopharyngeal airway. The remainder of the airways remain widely patent. 2. Prominent bilateral upper cervical chain lymphadenopathy, likely reactive in nature. Electronically signed by: Jim Yousif DO 01/30/2024 03:16 PM [facility]
--- NOTE | ~2024-01-30 | XR_ITS ---
EXAMINATION: XR CHEST CLINICAL INFORMATION: cough/SOB COMPARISON: None available. TECHNIQUE: 2 views of the chest were obtained. FINDINGS: No significant abnormality is noted involving the heart, lungs, mediastinum, bony thorax or soft tissues. XR/XR chest 2V IMPRESSION: Unremarkable examination. Electronically signed by: Sisi Perkins MD 01/30/2024 01:48 PM [facility]
--- NOTE | 2024-01-30 11:17 | ED_ITS ---
HPI - URI/Sore Throat General Chief Complaint: Upper Respiratory Symptoms Stated Complaint: Sore throat Time Seen by Provider: 01/30/24 11:38 Source: patient, RN notes reviewed and old records reviewed Mode of arrival: ambulatory History of Present Illness ED Provider: Cammy Moore PA-C HPI Narrative: 43-year-old male with a past medical history of diabetes presenting to the ED complaining of sore throat > left, painful/difficulty swallowing, productive cough, mild SOB, and difficulty sleeping x 3 days. Reports chills. Denies fever, chest pain, abdominal pain, nausea/vomiting, sick contacts, travel Related Data Previous Rx's ?Medication ?Instructions ?Recorded docusate sodium 100 mg capsule 100 mg PO BID #30 caps 05/31/22 (Colace) cyclobenzaprine 10 mg tablet 10 mg PO Q8H #14 tabs 06/12/22 naproxen 500 mg tablet 500 mg PO BID PRN pain #14 tabs 06/12/22 prednisone 20 mg tablet 40 mg (2 x 20 mg) PO DAILY 06/12/22 inflammation 5 days #10 tabs cyclobenzaprine 5 mg tablet 5 mg PO BEDTIME PRN muscle spasm 06/25/22 #4 tabs metformin 1,000 mg tablet 1,000 mg PO BIDWMEAL #60 tabs 06/25/22 dexamethasone 4 mg tablet 4 mg PO BID #6 tabs 07/15/22 tramadol 50 mg tablet 50 mg PO TID PRN severe pain 07/15/22 (scale score 7-10) #12 tabs clotrimazole 1 % topical cream 1 appl topical BID 4 weeks #90 09/16/23 (Lotrimin AF (clotrimazole)) grams metformin 1,000 mg tablet 1,000 mg PO BID #60 tabs 09/17/23 insulin glargine 100 unit/mL (3 10 unit (0.1 mL) subcut QPM #15 mL 09/23/23 mL) subcutaneous pen (Lantus Solostar U-100 Insulin) mupirocin 2 % topical ointment 1 appl topical BID 7 days #15 grams 09/23/23 Allergies Allergy/AdvReac Type Severity Reaction Status Date / Time acetaminophen [From Tylenol] Allergy Rash Verified 01/30/24 11:19 Peanut Butter Allergy Itching Verified 01/30/24 11:19 Review of Systems 2 Review of Systems: Yes all other systems are reviewed and are negative Constitutional: Constitutional: Reports as per [facility] Past Medical History Attestation statement: The following information was validated with the patient. Source: old records reviewed Medical History (Updated 01/30/24 @ 17:20 by DEVIN Tompkins) Asthma Diabetes Thrombosed external hemorrhoid Surgical History History of tonsillectomy Social History Social History Patient Tobacco Use Status: Never used Tobacco Substance Use Type: Crack/Cocaine Advance Directives: No Advance Directives Information Provided: Yes Physical Exam 2 Vital Signs: Vital Signs: Last Vital Signs Temp 98.2 F 01/30/24 15:21 Pulse 80 01/30/24 15:21 Resp 16 01/30/24 15:21 BP 143/87 H 01/30/24 15:21 Pulse Ox 97 01/30/24 17:33 O2 Del Method Room Air 01/30/24 17:33 BMI result Body Mass Index 33.5 Const: General: cooperative, healthy appearing and no acute distress O rientation/consciousness: patient oriented x3 Limitations: no limitations HEENT: Head: Yes normal to inspection and Yes atraumatic Ears: hearing grossly normal bilaterally, external ears normal, TM's normal bilaterally and mastoids normal General nose exam: Normal external nose present Face and sinus: Yes normal facial exam Mouth: no drooling Throat: Yes peritonsillar mass (left sided), Yes uvula laterally displaced (to the right), Yes uvular edema and Yes other (+ soft palate erythema and swelling noted on left side) Eyes: General: appearance normal, both eyes and all related structures EOM: EOMs intact bilaterally Neck: Other: + left-sided submandibular lymphadenopat hy Neck: Yes no meningeal signs Resp: Effort & Inspection: normal respiratory effort, no respiratory distress and no stridor Auscultation: wheezes expiratory wheezes (Slight) and lower bilaterally Cardio: Rate: regular rate Heart sounds: S1 normal heart sound present and S2 normal heart sound present GI: Inspection: Yes normal to inspection Palpation (GI): Soft to palpation, nontender, no guarding and not rigid Skin: Rashes: no rashes Wounds: no wounds Neuro: General: patient oriented x3, tone normal and no meningeal signs C ranial nerves: Yes CN's II-XII intact bilaterally Gait exam (Neuro): Normal gait present Extrem: General: Yes normal to inspection Course Course Course Narrative: This is an RME: Additional HPI, ROS, PE not included below will be deferred to primary provider. RME assessment and note performed by: Veronica Fong PA-C This is a 62-rjcx-py[age]-male, with a hx of diabetes on metformin, who presents to the ER with complaints of productive cough with yellow sputum and sore throat x 2 days. No fevers. No sick contacts. OP is erythematous with tonsillar edema and exudates. Uvular also appears edematous. Lungs CTA. Speaking in full sentences. Able to swallow liquids Plan: strep swabs, viral swabs -1526--no leukocytosis. ESR/CRP elevated -viral studies negative XR chest 2V IMPRESSION: Unremarkable examination. CT soft tissue neck w IV con IMPRESSION: 1. Prominent heterogeneous enlargement of the palatine tonsils abutting in the midline. Moderate, amorphous, confluent edema surrounding the left palatine tonsil extending into the left submandibular space and into the left lateral aspect of the supraglottic larynx. No demonstrated discrete, walled-off fluid collection. No demonstrated enhancing soft tissue mass. There is narrowing of the nasopharyngeal airway. The remainder of the airways remain widely patent. 2. Prominent bilateral upper cervical chain lymphadenopathy, likely reactive in nature. > case discussed with ED attending Dr. Johnson, recommendation is admission for IV antibiotics/steroids and observation. Will discuss case with hospitalist Medications Administered Generic Name Dose Route Start Last Admin Trade Name Freq PRN Reason Stop Dose Admin Enoxaparin Sodium 40 mg 01/30/24 18:00 01/30/24 18:33 Enoxaparin Sodium 40 Mg/0.4 Ml Syringe SUBCUT 40 mg Q24H ESTEVAN Administration Discontinued Medications Generic Name Dose Route Start Last Admin Trade Name Freq PRN Reason Stop Dose Admin Albuterol Sulfate 4 puff 01/30/24 12:36 01/30/24 12:42 Albuterol Sulfate 90 Mcg 8 Gm Inhaler INHALE 01/30/24 12:37 4 puff ONCE ONE Administration Dexamethasone Sodium Phosphate 10 mg 01/30/24 11:54 01/30/24 12:05 Dexamethasone Sod Phosphate 10 Mg/Ml Vial IVPUSH 01/30/24 11:55 10 mg ONCE ONE Administration Ampicillin Sodium/Sulbactam 100 mls @ 200 mls/hr 01/30/24 13:12 01/30/24 14:04 Sodium 3 gm/ Sodium Chloride IV 01/30/24 13:41 Infused ONCE ONE Infusion Iohexol 100 ml 01/30/24 13:24 01/30/24 13:24 Iohexol 350 Mg/Ml 100 Ml Infus..Btl IV 01/30/24 13:25 70 ml ONCE ONE Administration Lidocaine HCl 5 ml 01/30/24 11:54 01/30/24 12:25 Lidocaine Hcl 1 % Mpf 5 Ml Vial INFILTRATI 01/30/24 11:55 5 ml ONCE ONE Administration Medical Decision Making Medical Decision Making [facility] Narrative: 43-year-old male with a past medical history of diabetes presenting to the ED complaining of sore throat > left, painful/difficulty swallowing, productive cough, mild SOB, and difficulty sleeping x 3 days. On exam vital signs stable, NAD, nontoxic appearing, appears uncomfortable, left-sided submandibular lymphadenopathy appreciated with left-sided oropharyngeal/tonsillar erythema/swelling with uvular deviation to the right. No drooling. handling secretions. Slight end expiratory wheeze noted. Concern for viral illness vs pneumonia vs bronchitis. Concern for [employer] vs strep pharyngitis. Lower suspicion for retropharyngeal abscess at this time. No evidence of airway compromise Plan: Labs, viral testing, rapid strep, CXR, CT neck, p.o. Decadron Please refer to course for remaining clinical decision making, interpretation of labs/imaging results, and discussions with consultants and/or family members. Differential Diagnosis Differential Diagnoses: The differential diagnosis associated with the presentation includes As above Admission/Observation Consideration of admission/observation: Escalation of care including admission/observation considered Lab Data [facility] Lab Attestation statement: I reviewed the patient's lab results. 01/30/24 12:36 01/30/24 12:36 Labs: Lab Results 01/30/24 01/30/24 01/30/24 Range/Units 11:57 12:36 15:44 WBC 10.7 (4.8-10.8) X10*3/uL RBC 5.14 (4.60-5.80) X10*6/uL Hgb 15.6 (14.0-18.0) g/dl Hct 45.8 (42.0-52.0) % MCV 89.1 (80.0-98.0) fL MCH 30.4 (27.0-33.0) pg MCHC 34.1 (31.0-36.0) g/dl RDW 11.9 (11.0-16.0) % Plt Count 230 (160-400) X10*3/uL MPV 11.4 (9.4-12.4) fL Immature Gran % (Auto) 0.3 (0.0-0.4) % Neut % (Auto) 65.0 (45-73) % Lymph % (Auto) 24.9 (20-40) % [place] % (Auto) 7.4 (2-11) % Eos % (Auto) 1.9 (0-4) % Baso % (Auto) 0.5 (0-2) % Lymph # (Auto) 2.7 (1.2-4.9) X10*3/uL [place] # (Auto) 0.8 (0.1-1.2) X10*3/uL Eos # (Auto) 0.2 (0.0-0.4) X10*3/uL Baso # (Auto) 0.1 (0.0-0.2) X10*3/uL Abs Immat Gran (auto) 0.03 (0.00-0.03) X10*3/uL Absolute Neuts (auto) 7.0 (2.0-8.3) x10*3/uL Absolute Nucleated RBC 0.000 (0.0-0.012) X10*3/uL Nucleated RBC % (auto) 0.0 (0.0-0.2) /100WBC ESR 26 H (0-15) MM/HR Sodium 136 (135-145) mmol/L Potassium 4.0 (3.3-5.1) mmol/L Chloride 102 (96-108) mmol/L Carbon Dioxide 23 (22-29) mmol/L Anion Gap 15 (12-20) BUN 17 H (9-16) mg/dL Creatinine 0.73 (0.5-1.4) mg/dL Estim Creat Clear Calc 167.1 Estimated GFR > 60 POC Glucose 298 H (60-115) mg/dL Random Glucose 307 H (60-115) mg/dL Calcium 9.5 D (8.4-10.2) mg/dL Total Bilirubin 1.1 H (0.0-1.0) mg/dL Direct Bilirubin 0.3 (0.0-0.5) mg/dL AST 16 (5-37) U/L ALT 20 (0-40) U/L Alkaline Phosphatase 94 (39-117) U/L C-Reactive Protein 4.73 H (< or = 0.50) mg/dL Total Protein 7.4 (6.5-8.0) g/dL Albumin 4.1 (3.5-5.0) g/dL Influenza Type A (PCR) NEGATIVE (Negative) Influenza Type B (PCR) NEGATIVE (Negative) RSV RNA Qual (PCR) NEGATIVE (Negative) SARS-CoV-2 RNA (RT-PCR) NEGATIVE (Negative) S. pyogenes GrpA LAURIE Negative (Negative) Independent Interpretation I performed an independent interpretation of an: Plain X-Ray and CT Scan Radiology Impression Discussion of test interpretation with radiology: I have reviewed the radiologist's reading. External Record Review External record reviewed: Inpatient record, Office record, Outpatient record, Prior outpatient labs, Prior outpatient radiology, Primary care record and Outside ED record Tests considered The following testing was considered but not selected: As above Prescription Management I considered prescription management with: Pain Medication and Antibiotic Chronic Conditions Patient?s care impacted by: Diabetes Social Determinants Patient?s care significantly limited by Social Determinants of Health including: Other Social Determinant of Health Critical Care Time Critical Care Time Critical Care Time: Yes Total Critical Care Time: 45 Attestation: I have personally provided critical care time exclusive of time spent on separately billable procedures. Time includes review of lab data, radiology results, discussion with consultants, and monitoring for potential decompensation. Intervention performed as documented. Discharge Plan Discharge Clinical Impression: Enlargement of left palatine tonsil Patient Disposition: Admitted As Inpatient
[2024-01-30 11:18] VITALS: BP 129/82; PULSE 84; RESP 20; TEMP 36.6; O2SAT 95; BMI 33.5
[2024-01-30] MEDS: dexAMETHasone sod phosphate 10 MG/ML VIAL IVPUSH (12:05)
[2024-01-30 12:19] LABS: IDNOW Serial# 08D9AD1C; Strep A Nucleic Acid Negative (Negative)
[2024-01-30] MEDS: Lidocaine HCl 1 % MPF 5 ML VIAL INFILTRATI (12:25)
[2024-01-30] MEDS: Albuterol Sulfate 90 MCG 8 GM INHALER 4 PUFF INHALE (12:42)
[2024-01-30 12:43] VITALS: PULSE 84; RESP 20; O2SAT 99
[2024-01-30 12:43] LABS: Basophils Absolute Auto 0.1 X10*3/uL (0.0-0.2); Basophils Percent Auto 0.5 % (0-2); Eosinophils Absolute Auto 0.2 X10*3/uL (0.0-0.4); Eosinophils Percent Auto 1.9 % (0-4); Hematocrit 45.8 % (42.0-52.0); Hemoglobin 15.6 g/dl (14.0-18.0); Imm Gran Abs Auto 0.03 X10*3/uL (0.00-0.03); Imm Gran Pct Auto 0.3 % (0.0-0.4); Lymphocytes Absolute Auto 2.7 X10*3/uL (1.2-4.9); Lymphocytes Percent Auto 24.9 % (20-40); MANUAL DIFF FLAG NO; Mean Corpuscular HGB Conc 34.1 g/dl (31.0-36.0); Mean Corpuscular Hemoglobin 30.4 pg (27.0-33.0); Mean Corpuscular Volume 89.1 fL (80.0-98.0); Mean Platelet Volume 11.4 fL (9.4-12.4); Monocytes Absolute Auto 0.8 X10*3/uL (0.1-1.2); Monocytes Percent Auto 7.4 % (2-11); Platelet Count 230 X10*3/uL (160-400); Red Blood Count 5.14 X10*6/uL (4.60-5.80); Red Cell Distribution Width 11.9 % (11.0-16.0); White Blood Count 10.7 X10*3/uL (4.8-10.8)
[2024-01-30 12:48] LABS: Influenza A PCR NEGATIVE (Negative); Influenza B PCR NEGATIVE (Negative); Resp Syncy Virus RNA Qual PCR NEGATIVE (Negative); SARS COV2 PCR INHOUSE NEGATIVE (Negative)
[2024-01-30 12:59] LABS: Alanine Aminotransferase 20 U/L (0-40); Albumin Level 4.1 g/dL (3.5-5.0); Alkaline Phosphatase 94 U/L (39-117); Anion Gap 15 (12-20); Aspartate Amino Transferase 16 U/L (5-37); Bilirubin Direct 0.3 mg/dL (0.0-0.5); Bilirubin Total 1.1 mg/dL (0.0-1.0); Blood Urea Nitrogen 17 mg/dL (9-16); C Reactive Protein 4.73 mg/dL (< or = 0.50); Calcium 9.5 mg/dL (8.4-10.2); Carbon Dioxide 23 mmol/L (22-29); Chloride 102 mmol/L (96-108); Creatinine Clr Calc Pharmacy 167.1; Estimated Glomerular Filt Rate > 60; Glucose Random 307 mg/dL (60-115); Sodium 136 mmol/L (135-145); Total Protein 7.4 g/dL (6.5-8.0)
[2024-01-30 13:21] LABS: Erythrocyte Sedimentation Rate 26 MM/HR (0-15)
[2024-01-30] MEDS: iohexoL 350 MG/ML 100 ML INFUS..BTL IV (13:24)
[2024-01-30] MEDS: Ampicillin Sodium/Sulbactam Na 3 GM in 0.9 % Sodium Chloride 100 ML IV (13:34)
[2024-01-30 15:21] VITALS: BP 143/87; PULSE 80; RESP 16; TEMP 36.8; O2SAT 95
[2024-01-30 15:47] LABS: Glucose, Whole Blood 298 mg/dL (60-115)
--- NOTE | 2024-01-30 16:21 | P.HPHOSP_ITS ---
History of Present Illness Date of Service: 01/30/24 Attending physician on admission: Remberto Teran Chief Complaint: Sore throat, dysphagia Pt is a 43-year-old male with a PMH significant for?asthma and yji-fxhzsxc-dfviijkbs type 2 diabetes who presents to the ED with?worsening throat pain and difficulty swallowing. Patient states symptoms began 4-5 days ago when he developed a cough and had cold-like symptoms. Reports cough was so bad that his chest began hurting. Symptoms improved 2-3 days ago but then patient developed a sore throat. Yesterday had tonsil pain that worsened today. Also began having difficulty swallowing, especially liquids which prompted visit to the ED for further evaluation. Patient states he has had problems with tonsil infection/swelling in the past, and is status post right tonsillectomy almost 7-9 years ago. Denies fever, chills. Currently no shortness a breath or difficulty breathing. Denies chest pain/pressure, palpitations. No nausea, vomiting, diarrhea, abdominal pain. Patient reports swelling has gone down some since presentation to the ED, and is able to tolerate liquids at this time. In the ED pt was mildly hypertensive up to 143/87, satting 95% on RA. Labs were significant for elevated ESR 26, CRP 4.73, and initial POC to 298. No leukocytosis. Stable H& H. No electrolyte abnormalities. Renal function baseline. Tested negative for strep, COVID, RSV, and flu. CXR showed no acute cardiopulmonary process. Soft tissue neck CT?showed prominent heterogeneous enlargement of palatine tonsils abutting in the midline with associated moderate confluent edema, but without evidence of abscess. Also showed prominent bilateral upper cervical chain lymphadenopathy likely reactive in nature. Pt was treated with albuterol, dexamethasone, and Unasyn. Pt will be admitted to the hospital for treatment and further evaluation of peritonsilitis without abscess. Review of Systems 2 Review of Systems: Negative except for that which is stated in the [facility] Medical History (Updated 01/31/24 @ 11:10 by Remberto Teran MD) Uncontrolled type 2 diabetes mellitus with hyperglycemia Asthma Diabetes Thrombosed external hemorrhoid Surgical History History of tonsillectomy Social History Patient Tobacco Use Status: Never used Tobacco Substance Use Type: Crack/Cocaine Advance Directives: No Advance Directives Information Provided: Yes Nutrition Risks: No Nutritional Risk Meds Allergies Allergy/AdvReac Type Severity Reaction Status Date / Time acetaminophen [From Tylenol] Allergy Rash Verified 01/30/24 11:19 Peanut Butter Allergy Itching Verified 01/30/24 11:19 Physical Exam 2 Vital Signs and Narrative: Vital Signs: Last Vital Signs Temp 98.2 F 01/30/24 15:21 Pulse 80 01/30/24 15:21 Resp 16 01/30/24 15:21 BP 143/87 H 01/30/24 15:21 Pulse Ox 95 01/30/24 15:21 O2 Del Method Room Air 01/30/24 15:21 BMI result Body Mass Index 33.5 Constitutional: Alert, in no acute distress. Mental Status: Oriented to person, place and time. Eyes: Pupils are equal, round, and reactive to light. Ear, Nose, and Throat: Oropharynx with left tonsil swelling and erythema, uvula laterally displaced to the right. Ears and nose without deformities. Trachea midline. Left-sided submandibular lymphadenopathy. Respiratory: Clear to auscultation bilaterally. No wheezing, rales, or rhonchi. Cardiovascular: S1, S2 regular. No murmurs, rubs, or gallops. Gastrointestinal: Abdomen soft, non-tender, non-distended. Normal bowel sounds. Neurologic: Cranial nerves II-XII are grossly intact bilaterally. No focal neurological deficits. Moves all extremities spontaneously. Skin: Warm, dry. Extremities: No edema. Psychiatric: Normal mood and affect. Results Labs 01/30/24 12:36 01/30/24 12:36 Labs: Laboratory Results - last 24 hr 01/30/24 01/30/24 01/30/24 11:57 12:36 15:44 MCV 89.1 MCH 30.4 MCHC 34.1 RDW 11.9 Plt Count 230 MPV 11.4 Immature Gran % (Auto) 0.3 Neut % (Auto) 65.0 Lymph % (Auto) 24.9 [place] % (Auto) 7.4 Eos % (Auto) 1.9 Baso % (Auto) 0.5 Lymph # (Auto) 2.7 [place] # (Auto) 0.8 Eos # (Auto) 0.2 Baso # (Auto) 0.1 Abs Immat Gran (auto) 0.03 Absolute Neuts (auto) 7.0 Absolute Nucleated RBC 0.000 Nucleated RBC % (auto) 0.0 ESR 26 H Anion Gap 15 Estim Creat Clear Calc 167.1 Estimated GFR > 60 POC Glucose 298 H Random Glucose 307 H Calcium 9.5 D Total Bilirubin 1.1 H Direct Bilirubin 0.3 AST 16 ALT 20 Alkaline Phosphatase 94 C-Reactive Protein 4.73 H Total Protein 7.4 Albumin 4.1 Influenza Type A (PCR) NEGATIVE Influenza Type B (PCR) NEGATIVE RSV RNA Qual (PCR) NEGATIVE SARS-CoV-2 RNA (RT-PCR) NEGATIVE S. pyogenes GrpA LAURIE Negative Imaging Radiologist's Impressions: Impressions Soft Tissue Neck CT 01/30/24 11:57 IMPRESSION: 1. Prominent heterogeneous enlargement of the palatine tonsils abutting in the midline. Moderate, amorphous, confluent edema surrounding the left palatine tonsil extending into the left submandibular space and into the left lateral aspect of the supraglottic larynx. No demonstrated discrete, walled-off fluid collection. No demonstrated enhancing soft tissue mass. There is narrowing of the nasopharyngeal airway. The remainder of the airways remain widely patent. 2. Prominent bilateral upper cervical chain lymphadenopathy, likely reactive in nature. Electronically signed by: Jim Yousif DO 01/30/2024 03:16 PM EST RP Chest X-Ray 01/30/24 13:20 IMPRESSION: Unremarkable examination. Electronically signed by: Sisi Perkins MD 01/30/2024 01:48 PM EST RP Assessment and Plan (1) Peritonsillar cellulitis: Status: Acute Plan Pt is a 43-year-old male with a PMH significant for?asthma and kwu-keittef-glsnbcwww type 2 diabetes who presents to the ED with?worsening throat pain and difficulty swallowing. Pt will be admitted to the hospital for treatment and further evaluation of peritonsilitis without abscess. Left peritonsillar cellulitis URI 4-5 days ago, tonsillar swelling and dysphagia since yesterday Pt s/p right tonsillectomy CT of neck showing tonsillar enlargement with edema but no discrete abscess No sepsis: No fever, tachycardia, tachypnea, or leukocytosis Patient given dexamethasone 10 mg IV, lidocaine, and started on broad-spectrum antibiotics in the ED Will treat with Unasyn 3g q6h, started 01/30/2024 WIll hold on additional steroids at this time Monitor respiratory status Asthma Not in acute exacerbation Continue home inhalers Non-insulin dependent type 2 diabetes Hold metformin SSI Diabetic diet ?AZAEL Needs outpatient testing and followup Pt without PCP for 6-7 years, will need to establish one for testing and treatment Full Code Attending:?Dr. Teran DVT Prophylaxis: Lovenox Due to the potential for compromised airway and potential need for emergent intubation, pt will require a hospitalization of at least two nights for treatment of?left peritonsillar cellulitis without abscess with IV antibiotics and close monitoring of respiratory status. Quality Stroke Does the patient have a stroke diagnosis?: No VTE Prior VTE?: No VTE Risk Level:: Medical - moderate - high VTE Device Contraindication: Treatment Not Indicated VTE Drug Contraindication: N/A - Med Ordered
[2024-01-30 17:33] VITALS: O2SAT 97
[2024-01-30] MEDS: Enoxaparin Sodium 40 MG/0.4 ML SYRINGE SUBCUT (18:33)
--- NOTE | 2024-01-30 18:55 | PHA.MEDREC ---
Addendum entered by Danyell Randolph RPh 01/30/24 19:03: Med rec was reviewed by Sudha. Original Note: Pharmacy Consult ? Medication Reconciliation Pharmacy has completed the medication reconciliation. Spoke to patient to confirm med list. Patient states he is only on metformin 1,000 bid. patient says the last time he took his medication was today.There is no claim history for metformin in the past year. when asked if he was insulin patient says NO.
--- NOTE | 2024-01-30 19:03 | PC.NURSE ---
report received from Naina GUZMAN, assume care of pt at this time
[2024-01-30 21:03] LABS: Glucose, Whole Blood 579 mg/dL (60-115)
[2024-01-30] MEDS: Ampicillin Sodium/Sulbactam Na 3 GM VIAL IV (21:19)
[2024-01-30] MEDS: Insulin Glargine,Hum.rec.anlog 100 UNIT/ML 10 ML VIAL SUBCUT (21:52)
[2024-01-30] MEDS: Insulin Lispro 100 UNIT/ML 3 ML VIAL SUBCUT ×2 (21:53)
[2024-01-30 22:13] VITALS: BP 154/71; PULSE 87; RESP 16; TEMP 36.1; O2SAT 100
[2024-01-30 23:04] LABS: Glucose, Whole Blood 573 mg/dL (60-115)
--- NOTE | 2024-01-30 23:07 | PC.NURSE ---
informed dr Pablo of POC of [phone], waiting on orders
--- NOTE | 2024-01-30 23:24 | PC.NURSE ---
report given to Mirian GEE
--- NOTE | 2024-01-31 00:20 | MHC.EDTECH ---
This tech took over care of patient at [phone],pt moved from [facility],to [facility],pt placed in hospital bed and [facility] at this time,patient ambulated to the bathroom with a steady gait, diet gingerale given per request ,pt appears to be comfortable watching TV,call mckay in reach
[2024-01-31 01:10] LABS: Glucose, Whole Blood 524 mg/dL (60-115)
--- NOTE | 2024-01-31 01:10 | MHC.EDTECH ---
POC taken and is [phone],RN Yolanda made aware
[2024-01-31] MEDS: Insulin Lispro 100 UNIT/ML 3 ML VIAL 10 UNIT SUBCUT (01:29)
[2024-01-31] MEDS: Insulin Glargine,Hum.rec.anlog 100 UNIT/ML 10 ML VIAL 10 UNIT SUBCUT (01:29)
[2024-01-31 02:07] VITALS: RESP 20
--- NOTE | 2024-01-31 02:35 | MHC.EDTECH ---
POC taken and is 468,RN Mirian aware,
[2024-01-31 02:38] LABS: Glucose, Whole Blood 468 mg/dL (60-115)
--- NOTE | 2024-01-31 02:40 | PC.NURSE ---
hospitalist at bedside to speak with the patient as he made staff aware that he wants to leave. Pt states that his girlfriend is in the main department with her granddaughter who is getting transferred out of the hospital and reports that he has to drive his gf to the hospital as she cannot drive herself as well as a resolution of his throat pain per his reports. Hospitalist spent time at bedside trying to educate the patient on the significance of his condition and the dangers regarding his poorly controlled diabetes; pt now reports that he will think about it .
[2024-01-31 05:17] LABS: Estimated Average Glucose 298 mg/dL; Hemoglobin A1C 449.8828 umol/L; Total Hemoglobin (HGBA1C) 4186.1765 umol/L
[2024-01-31 05:27] LABS: Glucose, Whole Blood 465 mg/dL (60-115)
[2024-01-31 05:29] VITALS: BP 133/93; PULSE 77; RESP 18; TEMP 36.6; O2SAT 95
--- NOTE | 2024-01-31 05:30 | MHC.EDTECH ---
Hourly rounds and vitals completed,POC taken and is 465,Mirian RN aware. Patient ambulated to the bathroom with a steady gait,pitcher of ice water given per request,call mckay in reach
[2024-01-31] MEDS: Ampicillin Sodium/Sulbactam Na 3 GM VIAL IV (05:47)
--- NOTE | 2024-01-31 06:07 | PC.NURSE ---
RN to bedside for medication administration to find the pt asleep in the bed. RN found a vape device in the patient's bed and notified security. They came to bedside and retrieved the vape. Pt can pick it up from security upon dc
[2024-01-31 07:59] LABS: Glucose, Whole Blood 357 mg/dL (60-115)
[2024-01-31] MEDS: Insulin Lispro 100 UNIT/ML 3 ML VIAL SUBCUT ×2 (08:50→11:55)
[2024-01-31 08:51] VITALS: BP 114/66; PULSE 58; RESP 18; TEMP 36.1; O2SAT 92
[2024-01-31 11:48] LABS: Glucose, Whole Blood 418 mg/dL (60-115)
--- NOTE | 2024-01-31 11:53 | PC.NURSE ---
POC 418. 10U Lispro administered and hospitalist notified per protocol
--- NOTE | 2024-01-31 11:59 | PM.DS ---
DS: Providers Provider Date of Service: 01/31/24 Date of admission: 01/30/24 17:10 Primary care physician: None Physician DS: Diagnosis Discharge Diagnosis (1) Peritonsillar cellulitis: Status: Acute (2) Uncontrolled type 2 diabetes mellitus with hyperglycemia: Status: Acute DS: Summary Hospital Course Hospital Course: From the history and physical by the admitting hospitalist, DEVIN Adorno, 01/30/24: Pt is a 43-year-old male with a PMH significant for?asthma and noc-ohdvhha-psxxxnypt type 2 diabetes who presents to the ED with?worsening throat pain and difficulty swallowing. Patient states symptoms began 4-5 days ago when he developed a cough and had cold-like symptoms. Reports cough was so bad that his chest began hurting. Symptoms improved 2-3 days ago but then patient developed a sore throat. Yesterday had tonsil pain that worsened today. Also began having difficulty swallowing, especially liquids which prompted visit to the ED for further evaluation. Patient states he has had problems with tonsil infection/swelling in the past, and is status post right tonsillectomy almost 7-9 years ago. Denies fever, chills. Currently no shortness a breath or difficulty breathing. Denies chest pain/pressure, palpitations. No nausea, vomiting, diarrhea, abdominal pain. Patient reports swelling has gone down some since presentation to the ED, and is able to tolerate liquids at this time. In the ED pt was mildly hypertensive up to 143/87, satting 95% on RA. Labs were significant for elevated ESR 26, CRP 4.73, and initial POC to 298. No leukocytosis. Stable H& H. No electrolyte abnormalities. Renal function baseline. Tested negative for strep, COVID, RSV, and flu. CXR showed no acute cardiopulmonary process. Soft tissue neck CT?showed prominent heterogeneous enlargement of palatine tonsils abutting in the midline with associated moderate confluent edema, but without evidence of abscess. Also showed prominent bilateral upper cervical chain lymphadenopathy likely reactive in nature. Pt was treated with albuterol, dexamethasone, and Unasyn. Pt will be admitted to the hospital for treatment and further evaluation of peritonsilitis without abscess. He was admitted to the hospitalist service. Throat pain and dysphagia resolved rapidly. Tonsillar swelling also improved rapidly. He was discharged on amoxicillin-clavulanate for 9 days.He had marked hyperglycemia and A1c was 12. Metformin is clearly insufficient for glycemic control. He was started on Lantus 20 units daily and prescribed a glucometer. He was urged to establish primary care [facility]. Time Attestation Discharge Coordination Time (in mins): 35 Quality: Safe Use of Opioids Does Pt have an Active Cancer Diagnosis on the Problem List?: No Quality: Stroke Does the patient have a stroke diagnosis?: No Physical Exam Vital Signs: Vital Signs: Last Vital Signs Temp 96.9 F 01/31/24 08:51 Pulse 58 01/31/24 08:51 Resp 18 01/31/24 08:51 BP 114/66 01/31/24 08:51 Pulse Ox 92 01/31/24 08:51 O2 Del Method Room Air 01/31/24 08:51 BMI result Body Mass Index 33.5 Gen: in no acute distress HEENT: sclera anicteric, moist mucus membranes, 2+ L tonsil without exudate or erythema Neck: supple, full ROM, rubbery lymph nodes in anterior cervical chain L>R Lungs: clear to auscultation bilaterally Heart: regular rate and rhythm, no murmurs Abd: soft, non-tender, non-distended Ext: no edema Skin: warm/well-perfused Neuro: alert and oriented x3, no focal findings Psych: appropriate affect DS: Data Data Completed and Pending Completed studies during hospitalization [Text1]: Laboratory Results WBC 10.7 X10*3/uL (4.8-10.8) 01/30/24 12:36 RBC 5.14 X10*6/uL (4.60-5.80) 01/30/24 12:36 Hgb 15.6 g/dl (14.0-18.0) 01/30/24 12:36 Hct 45.8 % (42.0-52.0) 01/30/24 12:36 MCV 89.1 fL (80.0-98.0) 01/30/24 12:36 MCH 30.4 pg (27.0-33.0) 01/30/24 12:36 MCHC 34.1 g/dl (31.0-36.0) 01/30/24 12:36 RDW 11.9 % (11.0-16.0) 01/30/24 12:36 Plt Count 230 X10*3/uL (160-400) 01/30/24 12:36 MPV 11.4 fL (9.4-12.4) 01/30/24 12:36 Immature Gran % (Auto) 0.3 % (0.0-0.4) 01/30/24 12:36 Neut % (Auto) 65.0 % (45-73) 01/30/24 12:36 Lymph % (Auto) 24.9 % (20-40) 01/30/24 12:36 Centre % (Auto) 7.4 % (2-11) 01/30/24 12:36 Eos % (Auto) 1.9 % (0-4) 01/30/24 12:36 Baso % (Auto) 0.5 % (0-2) 01/30/24 12:36 Lymph # (Auto) 2.7 X10*3/uL (1.2-4.9) 01/30/24 12:36 Centre # (Auto) 0.8 X10*3/uL (0.1-1.2) 01/30/24 12:36 Eos # (Auto) 0.2 X10*3/uL (0.0-0.4) 01/30/24 12:36 Baso # (Auto) 0.1 X10*3/uL (0.0-0.2) 01/30/24 12:36 Abs Immat Gran (auto) 0.03 X10*3/uL (0.00-0.03) 01/30/24 12:36 Absolute Neuts (auto) 7.0 x10*3/uL (2.0-8.3) 01/30/24 12:36 Absolute Nucleated RBC 0.000 X10*3/uL (0.0-0.012) 01/30/24 12:36 Nucleated RBC % (auto) 0.0 /100WBC (0.0-0.2) 01/30/24 12:36 ESR 26 MM/HR (0-15) H 01/30/24 12:36 Hold Purple Top SEE NOTE 01/31/24 04:15 Sodium 136 mmol/L (135-145) 01/30/24 12:36 Potassium 4.0 mmol/L (3.3-5.1) 01/30/24 12:36 Chloride 102 mmol/L (96-108) 01/30/24 12:36 Carbon Dioxide 23 mmol/L (22-29) 01/30/24 12:36 Anion Gap 15 (12-20) 01/30/24 12:36 BUN 17 mg/dL (9-16) H 01/30/24 12:36 Creatinine 0.73 mg/dL (0.5-1.4) 01/30/24 12:36 Estim Creat Clear Calc 167.1 01/30/24 12:36 Estimated GFR > 60 01/30/24 12:36 POC Glucose 418 mg/dL (60-115) H* 01/31/24 11:40 Random Glucose 307 mg/dL (60-115) H 01/30/24 12:36 Estimat Average Glucose 298 mg/dL 01/30/24 12:36 Hemoglobin A1c % 12.0 % (<6.0) H 01/30/24 12:36 Calcium 9.5 mg/dL (8.4-10.2) D 01/30/24 12:36 Total Bilirubin 1.1 mg/dL (0.0-1.0) H 01/30/24 12:36 Direct Bilirubin 0.3 mg/dL (0.0-0.5) 01/30/24 12:36 AST 16 U/L (5-37) 01/30/24 12:36 ALT 20 U/L (0-40) 01/30/24 12:36 Alkaline Phosphatase 94 U/L (39-117) 01/30/24 12:36 C-Reactive Protein 4.73 mg/dL (< or = 0.50) H 01/30/24 12:36 Total Protein 7.4 g/dL (6.5-8.0) 01/30/24 12:36 Albumin 4.1 g/dL (3.5-5.0) 01/30/24 12:36 Influenza Type A (PCR) NEGATIVE (Negative) 01/30/24 11:57 Influenza Type B (PCR) NEGATIVE (Negative) 01/30/24 11:57 RSV RNA Qual (PCR) NEGATIVE (Negative) 01/30/24 11:57 SARS-CoV-2 RNA (RT-PCR) NEGATIVE (Negative) 01/30/24 11:57 S. pyogenes GrpA LAURIE Negative (Negative) 01/30/24 11:57 Impressions Soft Tissue Neck CT 01/30/24 11:57 IMPRESSION: 1. Prominent heterogeneous enlargement of the palatine tonsils abutting in the midline. Moderate, amorphous, confluent edema surrounding the left palatine tonsil extending into the left submandibular space and into the left lateral aspect of the supraglottic larynx. No demonstrated discrete, walled-off fluid collection. No demonstrated enhancing soft tissue mass. There is narrowing of the nasopharyngeal airway. The remainder of the airways remain widely patent. 2. Prominent bilateral upper cervical chain lymphadenopathy, likely reactive in nature. Electronically signed by: Jim Yousif DO 01/30/2024 03:16 PM EST RP Chest X-Ray 01/30/24 13:20 IMPRESSION: Unremarkable examination. Electronically signed by: Sisi Perkins MD 01/30/2024 01:48 PM EST RP Discharge Plan Discharge Anticipated Discharge Date/Time: 01/31/24 11:08 Patient Disposition: Home, Self-Care Discharge Diagnosis: peritonsillitis uncontrolled type 2 diabetes mellitus Referrals: [facility] Primary Care,Angela [Provider Group] - 1 Week Physician,Zaheer [Primary Care Provider] - 1 Week Discharge Medications: New amoxicillin-pot clavulanate 875-125 mg tablet 1 tab PO BID Qty: 18 0RF (DME) FreeStyle Lite Strips Strip Qty: 100 0RF Rx Instructions: check blood glucose every morning and 2 hours after the largest meal of the day (DME) blood-glucose meter [FreeStyle Lite Meter] Kit Qty: 1 0RF Rx Instructions: check blood glucose every morning and 2 hours after the largest meal of the day alcohol swabs Pads, Medicated 1 pad TOPICAL QIDACHS Qty: 100 0RF Rx Instructions: Use four times a day or as directed. insulin glargine [Lantus Solostar U-100 Insulin] 100 unit/mL (3 mL) insulin pen 20 unit SUBCUT DAILY Qty: 15 0RF (DME) pen needle, diabetic 32 gauge x 1/4 needle Qty: 100 0RF Rx Instructions: use with insulin daily (DME) lancets [FreeStyle Lancets] [facility] Qty: 100 0RF Rx Instructions: check blood glucose every morning and 2 hours after the largest meal of the day Continued metformin 1,000 mg tablet 1,000 mg PO BIDWMEAL Qty: 60 0RF Discharge Orders: Discharge Order (Routine); Ordered 01/31/24 Ordered By: Remberto Teran Diet: Diabetic diet Activity on Discharge: As tolerated Stand Alone Forms: Patient Portal Discharge page Print Language: Japanese Care Plan Goals: cure of infection prevention of diabetic complications Health Concerns: peritonsillitis uncontrolled type 2 diabetes mellitus Plan of Treatment: amoxicillin-clavulanate twice daily for 9 days continue metformin 1000 mg twice daily take Lantus 20 units daily check blood glucose every morning and 2 hours after the largest meal of the day avoid sugar and simple starches; aerobic exercise daily establish primary care [facility] return to the hospital if you experience recurrent or worsening symptoms. Assessment: See Discharge Summary.
[2024-01-31 12:15] VITALS: BP 135/85; PULSE 69; RESP 18; TEMP 36.4; O2SAT 94
--- NOTE | 2024-01-31 12:26 | MHC.CM.PN ---
PT DCD HOME SELF CARE PRIOR TO BEING SEEN BY CM
[2024-01-31 12:35] VITALS: BP 135/85; PULSE 69; RESP 18; TEMP 36.4; O2SAT 94
== END 2024-01-31 13:30 | disposition home or self-care (01) | DRG 113 ==
LOC: HO.ED 15:31 → HO.EDOVER 19:11
PROVIDERS: Physician Assistant; Physician Assistant Medical; Student in an Organized Health Care Education/Training Program; Admitting Provider Student in an Organized Health Care Education/Training Program; Emergency Provider Emergency Medicine; Visit Provider Family Medicine
DX: J36 Peritonsillar abscess (principal); E11.65 Type 2 diabetes mellitus with hyperglycemia; G47.33 Obstructive sleep apnea (adult) (pediatric); J45.909 Unspecified asthma, uncomplicated; Z20.822 Contact with and (suspected) exposure to COVID-19; Z79.84 Long term (current) use of oral hypoglycemic drugs
CPT/HCPCS: 0241U; 36415; 70491; 71046; 80048; 80076; 82947; 83036; 85025; 85652; 86140; 87651; 94640; 99221; 99285; J0295; J1100; J1650; J2003; Q9967

== ENCOUNTER → 2024-01-30 17:10 | Outpatient (BNV) | payer OTHER, SELFPAY | PROVIDERS: Admitting Provider Student in an Organized Health Care Education/Training Program; Emergency Provider Emergency Medicine; Visit Provider Student in an Organized Health Care Education/Training Program | DX: J36 Peritonsillar abscess (principal); E11.65 Type 2 diabetes mellitus with hyperglycemia | CPT/HCPCS: 99222; 99239 ==

== ENCOUNTER 2024-03-25 04:21 | Emergency (ER) | payer OTHER, SELFPAY ==
[2024-03-25 04:27] VITALS: BP 126/83; PULSE 100; RESP 18; TEMP 35.8; O2SAT 97; BMI 37.2
[2024-03-25 06:40] LABS: Glucose, Whole Blood 202 mg/dL (60-115)
--- NOTE | 2024-03-25 07:00 | ED_ITS ---
HPI - General Adult General Chief complaint: Skin/Abscess/Foreign Body Stated complaint: swollen lip Time Seen by Provider: 03/25/24 07:00 History of Present Illness ED Provider: Bear TARIQ narrative: The patient is a 44-year-old male. He has a history of type 2 diabetes for which he has been prescribed insulin. He says that yesterday afternoon he felt that his lips were dry. He used a lip balm which a friend had. This was around 17:00 yesterday. At around 01:00 this morning he developed swelling and discomfort to his right lower lip and came to the emergency room for evaluation. No shortness of breath. No fever, sweats, chills. He says the swelling is more uncomfortable than itchy. Related Data Previous Rx's ?Medication ?Instructions ?Recorded metformin 1,000 mg tablet 1,000 mg PO BIDWMEAL #60 tabs 06/25/22 alcohol swabs 1 pad topical QIDACHS #100 ea 01/31/24 amoxicillin 875 mg-potassium 1 tab PO BID #18 tabs 01/31/24 clavulanate 125 mg tablet blood sugar diagnostic (FreeStyle #100 ea 01/31/24 Lite Strips) blood-glucose meter (FreeStyle #1 ea 01/31/24 Lite Meter kit) insulin glargine 100 unit/mL (3 20 unit (0.2 mL) subcut DAILY #15 01/31/24 mL) subcutaneous pen (Lantus mL Solostar U-100 Insulin) lancets 28 gauge (FreeStyle #100 ea 01/31/24 Lancets) pen needle, diabetic 32 gauge x #100 ea 01/31/24 1/4 amoxicillin 875 mg-potassium 1 tab PO BID #14 tabs 03/25/24 clavulanate 125 mg tablet valacyclovir 1 gram tablet 1,000 mg PO TID 7 days #21 tabs 03/25/24 Allergies Allergy/AdvReac Type Severity Reaction Status Date / Time acetaminophen [From Tylenol] Allergy Rash Verified 03/25/24 04:29 Peanut Butter Allergy Itching Verified 03/25/24 04:29 Review of Systems Review of Systems: Yes all other systems are reviewed and are negative PMFSH Past Medical History Medical History (Updated 03/25/24 @ 07:17 by Rajesh Sifuentes MD) Uncontrolled type 2 diabetes mellitus with hyperglycemia Asthma Diabetes Thrombosed external hemorrhoid Surgical History History of tonsillectomy Social History Social History Patient Tobacco Use Status: Never used Tobacco Substance Use Type: Crack/Cocaine Advance Directives: No Physical Exam ED Vital Signs: Vital Signs - 24 hr 03/25/24 04:27 03/25/24 07:42 Temperature 96.5 F L 96.5 F L Pulse Rate 100 100 Respiratory Rate 18 18 Blood Pressure 126/83 126/83 Pulse Oximetry 97 97 Oxygen Delivery Method Room Air Room Air BMI result Body Mass Index 37.2 Const Other: The patient his large 44-year-old male who was awake and alert. He does not seem in obvious distress but had obvious swelling to the right lower lip. HENMT Other: There is swelling to the right lower lip. On the surface of the lip near the wet to dry border there is an area of excoriation of the mucosa but there is no drainage. I do not appreciate any fluctuance in the lip. The lip does not strike me as markedly tender. The face is otherwise symmetrical and unremarkable. Mucous membranes are moist. There is some slight swelling to the right side of the tongue. Eyes General: appearance normal, both eyes and all related structures Neck Other: No distinct lymphadenopathy Resp Effort & Inspection: normal respiratory effort Auscultation: clear to auscultation bilaterally Cardio Rate: regular rate Rhythm: regular rhythm Heart sounds: S1 normal heart sound present and S2 normal heart sound present Skin Other: There is swelling to the right lower lip. There may be some minimal erythema the skin at the vermilion border but this is quite minor. There is no generalized erythema to the skin itself. No marked vesicles. Neuro Other: The patient is awake and alert with a normal mental status. Cranial nerves are grossly intact. He moves his extremities normally. Extrem Other: No peripheral edema Medications Administered Discontinued Medications Generic Name Dose Route Start Last Admin Trade Name Freq PRN Reason Stop Dose Admin Amoxicillin/Clavulanate Potassium 875 mg 03/25/24 07:14 03/25/24 07:36 Amoxicillin/Potassium Clav 875 Mg Tablet PO 03/25/24 07:15 875 mg ONCE ONE Administration Dexamethasone 10 mg 03/25/24 07:14 03/25/24 07:36 Dexamethasone 2 Mg Tablet PO 03/25/24 07:15 10 mg ONCE ONE Administration Loratadine 10 mg 03/25/24 07:14 03/25/24 07:38 Loratadine 10 Mg Tablet PO 03/25/24 07:15 10 mg ONCE ONE Administration Valacyclovir HCl 1,000 mg 03/25/24 07:14 03/25/24 07:36 Valacyclovir Hcl 1,000 Mg Tablet PO 03/25/24 07:15 1,000 mg ONCE ONE Administration Medical Decision Making Medical Decision Making [facility] Narrative: The patient presents with swelling in his right lower lip. He says this is not itchy but more uncomfortable. There is some slight excoriation in the mucosa of the lip but no real vesicles. I do not feel anything that feels like an abscess. It was not clear whether this is an infectious problem or possibly some kind of a localized allergic reaction to whatever cream he used yesterday. The patient will be given a dose of dexamethasone in case there is an allergic component. He will also be started on a course of Augmentin and a course of valacyclovir. Lab Data Labs: Lab Results 03/25/24 Range/Units 06:37 POC Glucose 202 H (60-115) mg/dL Discharge Plan Discharge Clinical Impression: Lip swelling Patient Disposition: Home, Self-Care Additional Instructions: It is not clear to me whether the swelling of your lip may be an allergic reaction to the cream you used yesterday or whether it may be some kind of an infection of your lip. You were given a dose of dexamethasone, a steroid medication, that should help reduce the swelling. You have also been started on a course of the antibiotic Augmentin (amoxicillin/clavulanate) and the antiviral drug valacyclovir. Please take the amoxicillin/clavulanate ( Augmentin) 2 times a day. Please take the valacyclovir 3 times a day. Please continue your efforts to get a primary care doctor. Continue your diabetic medications. Return to the emergency room if worse. Prescriptions: New amoxicillin-pot clavulanate 875-125 mg tablet 1 tab PO BID Qty: 14 0RF valacyclovir 1 gram tablet 1,000 mg PO TID 7 Days Qty: 21 0RF No Action metformin 1,000 mg tablet 1,000 mg PO BIDWMEAL Qty: 60 0RF amoxicillin-pot clavulanate 875-125 mg tablet 1 tab PO BID Qty: 18 0RF (DME) FreeStyle Lite Strips Strip Qty: 100 0RF Rx Instructions: check blood glucose every morning and 2 hours after the largest meal of the day (DME) blood-glucose meter [FreeStyle Lite Meter] Kit Qty: 1 0RF Rx Instructions: check blood glucose every morning and 2 hours after the largest meal of the day alcohol swabs Pads, Medicated 1 pad TOPICAL QIDACHS Qty: 100 0RF Rx Instructions: Use four times a day or as directed. insulin glargine [Lantus Solostar U-100 Insulin] 100 unit/mL (3 mL) insulin pen 20 unit SUBCUT DAILY Qty: 15 0RF (DME) pen needle, diabetic 32 gauge x 1/4 needle Qty: 100 0RF Rx Instructions: use with insulin daily (DME) lancets [FreeStyle Lancets] 28 gauge misc Qty: 100 0RF Rx Instructions: check blood glucose every morning and 2 hours after the largest meal of the day Interventions: ED Discharge Assessment Last Done: 03/25/24 07:42 Discharge Date/Time: 03/25/24 07:43 Print Language: [place]
[2024-03-25] MEDS: dexAMETHasone 2 MG TABLET 10 MG PO (07:36)
[2024-03-25] MEDS: valACYclovir HCL 1,000 MG TABLET 1000 MG PO (07:36)
[2024-03-25] MEDS: Amoxicillin/Potassium Clav 875 MG TABLET PO (07:36)
[2024-03-25] MEDS: Loratadine 10 MG TABLET PO (07:38)
[2024-03-25 07:42] VITALS: BP 126/83; PULSE 100; RESP 18; TEMP 35.8; O2SAT 97
== END 2024-03-25 07:43 | disposition home or self-care (01) ==
PROVIDERS: Emergency Provider Emergency Medicine
DX: K13.79 Other lesions of oral mucosa (principal); E11.9 Type 2 diabetes mellitus without complications; Z79.4 Long term (current) use of insulin; Z79.84 Long term (current) use of oral hypoglycemic drugs
CPT/HCPCS: 82947; 99282; 99283; J8540

== ENCOUNTER 2024-11-06 15:28 | Emergency (ER) | payer OTHER, SELFPAY ==
[2024-11-06 15:51] VITALS: BP 135/91; PULSE 90; RESP 18; TEMP 36.6; O2SAT 98; BMI 34.9
--- NOTE | 2024-11-06 15:53 | ED.GENADULT ---
HPI - General Adult General Chief complaint: Wound/Laceration Stated complaint: Cyst lower back Time Seen by Provider: 11/06/24 20:09 Source: patient Mode of arrival: ambulatory Limitations: no limitations History of Present Illness ED Provider: BROOKS HPI narrative: 44 yo male with PMH of DM here with c/o bumps on buttocks painful x 3 days. No hx of MRSA. He has no fevers, chills, nausea/vomiting. He notes he did feel hot at one point. HE has no preceding events. It was already draining on his underwear MD complaint: boil on buttock Onset (ago): day(s) (3) Radiation: non-radiation Severity: moderate Quality: aching Pain Consistency: constant Relieving factors: immobilization Exacerbating factors: movement Associated symptoms: denies other symptoms Treatments prior to arrival: none Related Data Previous Rx's ?Medication ?Instructions ?Recorded metformin 1,000 mg tablet 1,000 mg PO BIDWMEAL #60 tabs 06/25/22 alcohol swabs 1 pad topical QIDACHS #100 ea 01/31/24 amoxicillin 875 mg-potassium 1 tab PO BID #18 tabs 01/31/24 clavulanate 125 mg tablet blood sugar diagnostic (FreeStyle #100 ea 01/31/24 Lite Strips) blood-glucose meter (FreeStyle #1 ea 01/31/24 Lite Meter kit) insulin glargine 100 unit/mL (3 20 unit (0.2 mL) subcut DAILY #15 01/31/24 mL) subcutaneous pen (Lantus mL Solostar U-100 Insulin) lancets 28 gauge (FreeStyle #100 ea 01/31/24 Lancets) pen needle, diabetic 32 gauge x #100 ea 01/31/24 1/4 amoxicillin 875 mg-potassium 1 tab PO BID #14 tabs 03/25/24 clavulanate 125 mg tablet valacyclovir 1 gram tablet 1,000 mg PO TID 7 days #21 tabs 03/25/24 cephalexin 500 mg capsule 500 mg PO QID 7 days #28 caps 11/06/24 doxycycline hyclate 100 mg capsule 100 mg PO BID 7 days #14 caps 11/06/24 ondansetron 4 mg disintegrating 4 mg PO Q8H PRN nausea and 11/06/24 tablet vomiting #20 tabs oxycodone 5 mg tablet 5 mg PO Q8H PRN pain #9 tabs 11/06/24 Allergies Allergy/AdvReac Type Severity Reaction Status Date / Time acetaminophen (From Tylenol) Allergy Rash Verified 11/06/24 15:52 Peanut Butter Allergy Itching Verified 11/06/24 15:52 Review of Systems Review of Systems: Constitutional : No Fever, No Chills ENT/Mouth : No sore throat, No Rhinorrhea Eyes: No Eye Pain, No Swelling, No Redness Cardiovascular : No Chest Pain, No SOB Respiratory : No Cough, No Sputum Gastrointestinal : No Nausea, No Vomiting, No Diarrhea, No abdominal Pain Genitourinary : No Dysuria, No Hematuria Musculoskeletal : No joint pain, No Myalgias, No Joint Swelling Skin : No Skin Lesions, positive skin rash Neuro : No Weakness, No Numbness, No Headache Psych : No Anxiety, No Depression Heme/Lymph: No Bruising, No Bleeding,No Lymphadenopathy Endocrine : No Polyuria, No Polydipsia All other systems reviewed and are negative Yes all other systems are reviewed and are negative [facility] Past Medical History Attestation statement: The following information was validated with the patient. Source: old records reviewed Medical History Uncontrolled type 2 diabetes mellitus with hyperglycemia Asthma Diabetes Thrombosed external hemorrhoid Surgical History History of tonsillectomy Social History Social History Patient Tobacco Use Status: Never used Tobacco Substance Use Type: Crack/Cocaine Advance Directives: No Advance Directives Information Provided: No Do you have a plan to hurt others: No Plan Physical Exam ED Vital Signs: Vital Signs - 24 hr 11/06/24 15:51 11/06/24 20:36 Temperature 98 F 98.3 F Pulse Rate 90 83 Respiratory Rate 18 16 Blood Pressure 135/91 H 109/66 Pulse Oximetry 98 99 Oxygen Delivery Method Room Air Room Air BMI result Body Mass Index 34.9 Appearance: Alert. Oriented X3. No acute distress. Eyes: Pupils equal, round and reactive to light. ENT: Pharynx normal. Neck: Neck supple. CVS: Pulses normal. Respiratory: No respiratory distress. Abdomen: Soft and nontender. Rectal: draining superficial midline abscess - mild overlying redness in crease of buttocks at the top but no cellulitis on buttocks no extension to the rectum. Skin: Skin warm and dry. Normal skin color. Extremities: No lower extremity edema. Neuro: Oriented X 3. No motor deficit. No sensory deficit. CN2-12 intact Course Course Course Narrative: Mable Ospina [employer] 11/06 2481 This is a rapid medical exam. Defer additional HPI, ROS and PE to primary provider. 44-year-old male with a past medical history of diabetes presents to the ER with complaints of abscess. On exam patient has a pilonidal abscess that will need incision and drainage, VSS Medications Administered Discontinued Medications Generic Name Dose Route Start Last Admin Trade Name Paulino PRN Reason Stop Dose Admin Lidocaine HCl 5 ml 11/06/24 20:09 11/06/24 20:32 Lidocaine Hcl 1 % Mpf 5 Ml Vial SUBCUT 11/06/24 20:10 5 ml ONCE ONE Administration Procedures Abscess I/D Site: other Local Anesthetic: lidocaine 1% Amount of anesthesia used (mL): 5 Technique: needle aspiration and incised with blade Amount of fluid expressed (mL): 5 Sent for culture/gram staining?: No Irrigation: Yes Packing used?: none Medical Decision Making Medical Decision Making MDM Narrative: 44 yo male with DM who states his sugars have not been high notes boil and pain on buttock no systemic symptoms at this time not toxic and well appearing the abscess is draining already and no deeper collection felt. He has no overlying cellulitis. He has no perirectal involvement. I will open the area and irrigatte start on abx given his DM history I did not pack as it was mostly drained prior to my procedure and it was already opened, irrigated with NS Differential Diagnosis Differential Diagnoses: The differential diagnosis associated with the presentation includes abscess, pilonidal cyst Admission/Observation Consideration of admission/observation: Escalation of care including admission/observation considered VS stable, not toxic can be managed as outpatient External Record Review External record reviewed: Outpatient record Prescription Management I considered prescription management with: Pain Medication and Antibiotic Discharge Plan Discharge Clinical Impression: Abscess Patient Disposition: Home, Self-Care Instructions: Abscess (ED), Abscess Incision and Drainage (DC) Additional Instructions: finish all antibiotics okay to shower or do soaking in warm water epsom salt baths allow area to drain return for worsening swelling, pain, fevers On a cephalosporin?antibiotic, softer bowel movements are to be expected. Call your provider if you move your bowels more than 4 times a day, your bowel movements are almost all liquid, or you get a rash.?? On doxycycline, do not take pills immediately before going to bed and swallow pills with plenty of water. Avoid direct sunlight, iron, antacids, and Pepto Bismol. Call your provider if you develop new ringing in your ears, new problems hearing, dizziness, difficulty swallowing, rash, abdominal discomfort, nausea, or diarrhea.? Prescriptions: New doxycycline hyclate 100 mg capsule 100 mg PO BID 7 Days Qty: 14 0RF cephalexin 500 mg capsule 500 mg PO QID 7 Days Qty: 28 0RF ondansetron 4 mg tablet,disintegrating 4 mg PO Q8H PRN (Reason: nausea and vomiting) Qty: 20 0RF oxycodone 5 mg tablet 5 mg PO Q8H PRN (Reason: pain) Qty: 9 0RF Rx Instructions: Partial Fill upon patient request. No Action amoxicillin-pot clavulanate 875-125 mg tablet 1 tab PO BID Qty: 14 0RF valacyclovir 1 gram tablet 1,000 mg PO TID 7 Days Qty: 21 0RF metformin 1,000 mg tablet 1,000 mg PO BIDWMEAL Qty: 60 0RF amoxicillin-pot clavulanate 875-125 mg tablet 1 tab PO BID Qty: 18 0RF (DME) FreeStyle Lite Strips Strip Qty: 100 0RF Rx Instructions: check blood glucose every morning and 2 hours after the largest meal of the day (DME) blood-glucose meter [FreeStyle Lite Meter] Kit Qty: 1 0RF Rx Instructions: check blood glucose every morning and 2 hours after the largest meal of the day alcohol swabs Pads, Medicated 1 pad TOPICAL QIDACHS Qty: 100 0RF Rx Instructions: Use four times a day or as directed. insulin glargine [Lantus Solostar U-100 Insulin] 100 unit/mL (3 mL) insulin pen 20 unit SUBCUT DAILY Qty: 15 0RF (DME) pen needle, diabetic 32 gauge x 1/4 needle Qty: 100 0RF Rx Instructions: use with insulin daily (DME) lancets [FreeStyle Lancets] 28 gauge misc Qty: 100 0RF Rx Instructions: check blood glucose every morning and 2 hours after the largest meal of the day Print Language: Vincentian
[2024-11-06] MEDS: Lidocaine HCl 1 % MPF 5 ML VIAL SUBCUT (20:32)
[2024-11-06 20:36] VITALS: BP 109/66; PULSE 83; RESP 16; TEMP 36.8; O2SAT 99
[2024-11-06] MEDS: oxyCODONE HCl Immed Release 5 MG TABLET PO (21:37)
[2024-11-06 21:39] VITALS: BP 109/66; PULSE 83; RESP 16; TEMP 36.8; O2SAT 99
== END 2024-11-06 21:40 | disposition home or self-care (01) ==
PROVIDERS: Emergency Provider Emergency Medicine
DX: L02.31 Cutaneous abscess of buttock (principal); L72.9 Follicular cyst of the skin and subcutaneous tissue, unspecified
CPT/HCPCS: 10060; 99283; 99284; J2003

== ENCOUNTER 2025-02-09 05:40 | Emergency (ER) | payer OTHER, SELFPAY ==
[2025-02-09] VITALS (7 sets, daily range): BP systolic 144–161; BP diastolic 78–97; PULSE 87–107; RESP 16–20; TEMP -17.7–36.8; O2SAT 93–98; BMI 38.9
--- NOTE | ~2025-02-09 | XR_ITS ---
EXAMINATION: XR LUMBOSACRAL SPINE CLINICAL INFORMATION: Low back pain COMPARISON: 06/12/2022. TECHNIQUE: Three views of the lumbosacral spine. FINDINGS: There is no significant scoliosis. There is a normal lordosis. There is no subluxation. There is no fracture, compression deformity, or suspicious bone lesion. Mild disc degeneration is present most notable at L3-4 through L5-S1. Facets are normally aligned. Early facet arthritis is present L4-S1. No soft tissue abnormalities. XR/XR lumbar spine 2-3V IMPRESSION: 1. No acute findings of the lumbar spine. Mild degenerative lumbar spondylosis relatively unchanged from 06/12/2022. Electronically signed by: Isac Lucio MD 02/09/2025 09:13 AM ALLIE KEENAN
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
[2025-02-09] MEDS: Morphine Sulfate Immed Release 15 MG TABLET PO (06:37)
[2025-02-09] MEDS: Lidocaine 4 % Patch ADH..PATCH 1 PATCH TRANSDERMA (09:28)
--- NOTE | 2025-02-09 10:34 | PC.NURSE ---
upon d/c, Pt noted to have safe and steady gait while exiting ED.
[2025-02-09 17:40] LABS: Glucose, Whole Blood 273 mg/dL (60-115)
== END 2025-02-09 10:34 | disposition home or self-care (01) ==
PROVIDERS: Emergency Provider Emergency Medicine
DX: S39.012A Strain of muscle, fascia and tendon of lower back, initial encounter (principal); E11.9 Type 2 diabetes mellitus without complications; X58.XXXA Exposure to other specified factors, initial encounter; Y93.9 Activity, unspecified; Y92.9 Unspecified place or not applicable; Y99.9 Unspecified external cause status; Z88.6 Allergy status to analgesic agent; Z91.010 Allergy to peanuts
CPT/HCPCS: 72100; 82947; 96374; 96376; 99284; J2270

== ENCOUNTER → 2025-02-09 08:11 | Outpatient (BNV) | payer OTHER, SELFPAY | PROVIDERS: Emergency Provider Emergency Medicine; Visit Provider Radiology Diagnostic Radiology | DX: M47.816 Spondylosis without myelopathy or radiculopathy, lumbar region (principal) | CPT/HCPCS: 72100 ==